=== PATIENT | female | born 1945 | race Caucasian/White ===

== ENCOUNTER 2016-06-17 14:11 | Observation (INO) | payer OTHER ==
[~2016-06-17] VITALS: Ht 152.4 cm; Wt 45.0 kg
[~2016-06-17 14:11] MED LIST: ACET-749 PO; ASPI-232 PO; ATV/1 PO; NRV/5 PO; VALA1TAB PO
[2016-06-17] MEDS ORDERED: OPTIRAY 320 IV PRN (15:15)
[2016-06-17] MEDS ORDERED: ONDANSETRON INJ 2 MG/ML 2 ML VIAL IV STA (15:30)
[2016-06-17] MEDS ORDERED: SODIUM CHLORIDE 0.9% 500ML 500 ML IV STA (15:30)
[2016-06-17] MEDS ORDERED: HYDROmorphone INJ 0.5 MG/0.5 ML SYR IV STA ×4 (15:30→20:31)
[2016-06-17 15:54] LABS: BASO % 0.2 %; BASO ABS # 0.02 K/uL (0-0.2); COMPLETE YES; EOS % 0.3 %; HEMATOCRIT 40.2 % (37-47); IG% 0.2 %; LYMPH % 14.3 %; LYMPH ABS # 1.37 K/uL (1.2-3.4); MEAN CELL VOLUME 94.8 fL (80-100); MEAN CORPUSCULAR HEMOGLOBIN 33.7 pg (25-34); MEAN CORPUSCULAR HGB CONC 35.6 g/dl (32-36); MONO % 5.9 %; NEUT % 79.1 %; PLATELET COUNT 387 K/uL (130-400); RED BLOOD COUNT 4.24 M/uL (4.2-5.4); WHITE BLOOD COUNT 9.57 K/uL (4.8-10.8)
[2016-06-17 16:05] LABS: INR 0.9 (0.9-1.1); PARTIAL THROMBOPLASTIN RATIO 1.1
[2016-06-17 16:19] LABS: URINE APPEARANCE CLEAR (CLEAR); URINE BILIRUBIN NEG (NEG); URINE COLOR YELLOW; URINE EPITHELIAL CELL AUTO >30 /lpf (0-5); URINE NITRITE NEG (NEG); URINE SPECIFIC GRAVITY 1.015 (1.000-1.030); UROBILINOGEN NEG (NEG)
[2016-06-17 16:20] LABS: MANUAL MICROSCOPIC REQUIRED? NO; REVIEW REQ? NO
[2016-06-17 16:20] LABS: BLOOD UREA NITROGEN 15 mg/dl (7-18); CALCIUM 9.3 mg/dl (8.5-10.1); CARBON DIOXIDE 24 mmol/L (21-32); CHLORIDE 104 mmol/L (98-107); CREATININE 0.82 mg/dl (0.60-1.20); GLUCOSE 101 mg/dl (70-99); POTASSIUM 3.7 mmol/L (3.5-5.1); SODIUM 137 mmol/L (136-145)
[2016-06-17 16:48] LABS: LYME DISEASE AB IGG NEG (NEG); LYME DISEASE AB IGM NEG (NEG)
--- NOTE | 2016-06-17 17:31 | DIAGNOSTIC IMAGING REPORT ---
CT ANGIOGRAPHY HEAD COMBO CT DOSE: 924.40 mGycm CLINICAL HISTORY: Severe headache. TECHNIQUE: Axial images of the head were obtained before and after intravenous administration of116 cc Optiray 320 IV. Sagittal and coronal reconstructed reviewed as well as maximal intensity projections on an independent 3-D workstation. COMPARISON STUDY: Head CT March 21, 2015. FINDINGS: No acute intracranial hemorrhage, midline shift or mass effect is present. Ventricular system is normal. Basilar cisterns are patent. There are no extra-axial collections. Granados-white differentiation is maintained. White matter hypodensity suggests small vessel disease. There are no findings to suggest acute dural sinus thrombosis or acute territorial infarct. The bilateral M1, M2, A1 and A2 segments are patent. There is no abrupt vessel cut off. There is moderate plaque within the bilateral cavernous carotids. No intracranial aneurysm is identified. The posterior circulation is intact. IMPRESSION: 1. No acute intracranial findings. 2. No intracranial aneurysm or abrupt vessel cut off. Electronically signed by: Ty Andrews M.D. 06/17/2016 5:29 PM Dictated Date/Time: 06/17/2016 5:24 PM
[2016-06-17] MEDS ORDERED: LORAZEPAM 1 MG TAB SL STA (18:18)
[2016-06-17] MEDS ORDERED: FENTANYL CITRATE INJ 50 MCG/1 ML 2 ML VIAL IV STA (19:13)
[2016-06-17] MEDS ORDERED: PROCHLORPERAZINE 5 MG/ML 2 ML VIAL IV STA (20:31)
[2016-06-17 21:57] LABS: ALKALINE PHOSPHATASE 75 U/L (45-117); ALT/SGPT 89 U/L (12-78); AST/SGOT 30 U/L (15-37); MAGNESIUM 2.5 mg/dl (1.8-2.4)
[2016-06-17] MEDS ORDERED: OXYCODONE/ACETAMINOPHEN 5-325 TAB PO PRN (22:30)
[2016-06-17] MEDS ORDERED: LORAZEPAM 2 MG/ML 1 ML VIAL IV PRN ×2 (22:30→22:45)
[2016-06-17] MEDS ORDERED: MoRPHine SULFATE 4 MG/ML 1 ML CARP\\VIAL IV PRN ×2 (22:30→23:00)
[2016-06-17] MEDS ORDERED: IV FLUIDS COMPLETED PRN (22:30)
[2016-06-17] MEDS ORDERED: NITROGLYCERIN 0.4 MG SL PER TAB CHARGE SL PRN (22:45)
[2016-06-17] MEDS ORDERED: METOCLOPRAMIDE HCL INJ 5 MG/ML 2 ML VIAL IV PRN (22:45)
[2016-06-17] MEDS ORDERED: ACETAMINOPHEN 325 MG TAB PO PRN (22:45)
[2016-06-17] MEDS ORDERED: LORAZEPAM 1 MG TAB PO PRN (22:45)
[2016-06-17] MEDS ORDERED: ONDANSETRON INJ 2 MG/ML 2 ML VIAL IV PRN (22:45)
[2016-06-17] MEDS ORDERED: PROMETHAZINE HCL INJ 12.5 MG in SODIUM CHLORIDE 0.9% 50ML 50 ML IV PRN (22:45)
--- NOTE | 2016-06-17 23:44 | EMERGENCY ROOM VISIT NOTE ---
History Report prepared by Estela: Daniel Miramontes Under the Supervision of: Dr. Guanakito Kennedy M.D. First contact with patient: 15:10 Chief Complaint: HEADACHE Stated Complaint: SEVERE HEADACHES History of Present Illness The patient is a 70 year old female who presents to the Emergency Room with complaints of a worsening blistering headache in the occipital region starting last night around 1530 yesterday. The patient's states that last night she got a headache, and she took her lorazepam before eating her evening meal, and the lorazepam did not help. The states that afterwards between 1900- 0500 this morning she took 8 Tylenol 3 with codeine. The patient states that she usually has headaches around 1500 every day for years, so she takes lorazepam, and after this usually helps, and she can sleep. The patient states that she woke up this morning, and she had some dario dry and two aspirin and her blood pressure medications. She states that around 0930 the headache got much worse. The patient additionally states that she has pulled a muscle in her right side, she has been having some palpitations, and she has been having some nausea. Additionally, she states that her jaw shakes and it feels like her throat is closing up. Pt denies LOC, fevers, chills, diaphoresis, visual changes , neck pain, breathing difficulties, vomiting, abdominal pain, back pain, melena , hematochezia, urinary symptoms, numbness, weakness, lymphadenopathy, rash, or other complaints. Source of History: patient, spouse/significant other Onset: 1530 last night Position: head Symptom Intensity: blistering Quality: ache Timing: worsening Note: Associated symptoms: Right sided pain, jaw shaking, palpitations Review of Systems See HPI for pertinent positives and negatives. A total of ten systems were reviewed and were otherwise negative. Past Medical & Surgical Medical Problems: (1) HTN (hypertension) Family History FH: [place] (myocardial infarction) FATHER FH: throat cancer MOTHER Social History Smoking Status: Never Smoker Alcohol Use: none Marital Status: Housing Status: lives with family Current/Historical Medications Scheduled Amlodipine Besylate (Amlodipine Besylate), 10 MG PO DAILY Aspirin (Aspir-81), 81 MG PO DAILY Scheduled PRN Acetaminophen/Codeine (Tylenol W/Codeine #3), 1-2 TAB PO Q4H PRN for Pain Lorazepam (Ativan), 1-2 MG PO HS PRN for Anxiety and/or Sedation Allergies Coded Allergies: Brompheniramine (Verified Allergy, Unknown, UNKNOWN, 06/17/16) Buspirone (Verified Allergy, Unknown, UNKNOWN, 06/17/16) Chlorzoxazone (Verified Allergy, Unknown, U NKNOWN, 06/17/16) Diphenhydramine (Verified Allergy, Unknown, UNKNOWN, 06/17/16) Famotidine (Verified Allergy, Unknown, UNKNOWN, 06/17/16) Gluten (Unverified Allergy, Unknown, unknown, 06/17/16) Ibuprofen (Unverified Allergy, Unknown, hives, 06/17/16) Meperidine (Verified Allergy, Unknown, ., 06/17/16) Penicillins (Unverified Allergy, Unknown, 06/17/16) Phenylpropanolamine (Verified Allergy, Unknown, UNKNOWN, 06/17/16) Sulfa Drugs (Unverified Allergy, Unknown, 06/17/16) Thiopental (Verified Allergy, Unknown, ., 06/17/16) Metoprolol (Verified Adverse Reaction, Intermediate, SUDDEN SEVERE MOOD CHANGES, 06/17/16) Prednisone (Verified Adverse Reaction, Mild, o, 06/17/16) increased iop Uncoded Allergies: IMPERIUM 3 (Allergy, Unknown, UNKNOWN, 04/29/13) Physical Exam Vital Signs Date Time Temp Pulse Resp B/P Pulse Ox O2 Delivery O2 Flow Rate FiO2 06/17/16 21:47 78 16 159/88 94 Room Air 06/17/16 20:25 73 06/17/16 20:13 69 18 150/84 96 06/17/16 18:47 74 16 162/79 94 Room Air 06/17/16 17:21 81 19 144/81 96 Room Air 06/17/16 16:08 81 06/17/16 15:29 85 16 175/94 96 Room Air 06/17/16 14:27 37.2 92 19 180/90 95 Room Air Physical Exam GENERAL: Awake, alert, uncomfortable appearing, no distress HENT: Tenderness across the occiput bilaterally. Normocephalic, atraumatic. TM' s normal. Oropharynx unremarkable. EYES: PERRL. EOMI. Normal conjunctiva. Sclera non-icteric. NECK: Supple. No nuchal rigidity. FROM. No JVD or bruit. RESPIRATORY: CTA CARDIAC: RRR. No murmur. ABDOMEN: Soft, non distended. No tenderness to palpation. No rebound or guarding. No masses. RECTAL: Deferred. MUSCULOSKELETAL: Unremarkable. No edema. No discoloration. Gross motor strength symmetric. NEURO: Cranial nerves 2-12 grossly intact. Normal sensorium. No sensory or motor deficits noted. Speech normal. No pronator drift. SKIN: No rash or jaundice noted. LYMPH: No adenopathy. Medical Decision & Procedures ER Provider Diagnostic Interpretation: Radiology results as stated below per my review and radiologist interpretation CT ANGIOGRAPHY HEAD COMBO CT DOSE: 924.40 mGycm CLINICAL HISTORY: Severe headache. TECHNIQUE: Axial images of the head were obtained before and after intravenous administration of116 cc Optiray 320 IV. Sagittal and coronal reconstructed reviewed as well as maximal intensity projections on an independent 3-D workstation. COMPARISON STUDY: Head CT March 21, 2015. FINDINGS: No acute intracranial hemorrhage, midline shift or mass effect is present. Ventricular system is normal. Basilar cisterns are patent. There are no extra-axial collections. Granados-white differentiation is maintained. White matter hypodensity suggests small vessel disease. There are no findings to suggest acute dural sinus thrombosis or acute territorial infarct. The bilateral M1, M2, A1 and A2 segments are patent. There is no abrupt vessel cut off. There is moderate plaque within the bilateral cavernous carotids. No intracranial aneurysm is identified. The posterior circulation is intact. IMPRESSION: 1. No acute intracranial findings. 2. No intracranial aneurysm or abrupt vessel cut off. Electronically signed by: Ty Andrews M.D. 06/17/2016 5:29 PM Dictated Date/Time: 06/17/2016 5:24 PM Laboratory Results 06/17/16 15:25 Red Blood Count 4.24, Mean Corpuscular Volume 94.8, Mean Corpuscular Hemoglobin 33.7, Mean Corpuscular Hemoglobin Concent 35.6, Mean Platelet Volume 9.0, Neutrophils (%) (Auto) 79.1, Lymphocytes (%) (Auto) 14.3, Monocytes (%) (Auto) 5.9, Eosinophils (%) (Auto) 0.3, Basophils (%) (Auto) 0.2, Neutrophils # (Auto) 7.57, Lymphocytes # (Auto) 1.37, Monocytes # (Auto) 0.56, Eosinophils # (Auto) 0.03, Basophils # (Auto) 0.02 06/17/16 15:25 Test 06/17/16 15:25 06/17/16 16:01 White Blood Count 9.57 K/uL (4.8-10.8) Red Blood Count 4.24 M/uL (4.2-5.4) Hemoglobin 14.3 g/dL (12.0-16.0) Hematocrit 40.2 % (37-47) Mean Corpuscular Volume 94.8 fL (80-100) Mean Corpuscular Hemoglobin 33.7 pg (25-34) Mean Corpuscular Hemoglobin Concent 35.6 g/dl (32-36) Platelet Count 387 K/uL (130-400) Mean Platelet Volume 9.0 fL (7.4-10.4) Neutrophils (%) (Auto) 79.1 % Lymphocytes (%) (Auto) 14.3 % Monocytes (%) (Auto) 5.9 % Eosinophils (%) (Auto) 0.3 % Basophils (%) (Auto) 0.2 % Neutrophils # (Auto) 7.57 K/uL (1.4-6.5) Lymphocytes # (Auto) 1.37 K/uL (1.2-3.4) Monocytes # (Auto) 0.56 K/uL (0.11-0.59) Eosinophils # (Auto) 0.03 K/uL (0-0.5) Basophils # (Auto) 0.02 K/uL (0-0.2) RDW Standard Deviation 40.9 fL (36.4-46.3) RDW Coefficient of Variation 11.9 % (11.5-14.5) Immature Granulocyte % (Auto) 0.2 % Immature Granulocyte # (Auto) 0.02 K/uL (0.00-0.02) Erythrocyte Sedimentation Rate 7 mm/hr (0-21) Prothrombin Time 10.0 SECONDS (9.0-12.0) Prothromb Time International Ratio 0.9 (0.9-1.1) Activated Partial Thromboplast Time 27.8 SECONDS (21.0-31.0) Partial Thromboplastin Ratio 1.1 Anion Gap 9.0 mmol/L (3-11) Est Creatinine Clear Calc Drug Dose 43.6 ml/min Estimated GFR () 84.0 Estimated GFR (Non- 72.5 BUN/Creatinine Ratio 18.0 (10-20) Calcium Level 9.3 mg/dl (8.5-10.1) Magnesium Level 2.5 mg/dl (1.8-2.4) Total Bilirubin 0.4 mg/dl (0.2-1) Direct Bilirubin < 0.1 mg/dl (0-0.2) Aspartate Amino Transf (AST/SGOT) 30 U/L (15-37) Alanine Aminotransferase (ALT/SGPT) 89 U/L (12-78) Alkaline Phosphatase 75 U/L (45-117) Troponin I < 0.015 ng/ml (0-0.045) Total Protein 8.3 gm/dl (6.4-8.2) Albumin 4.5 gm/dl (3.4-5.0) Lipase 178 U/L (73-393) Lyme Disease IgG Antibody NEG (NEG) Lyme Disease IgM Antibody NEG (NEG) Urine Color YELLOW Urine Appearance CLEAR (CLEAR) Urine pH 5.0 (4.5-7.5) Urine Specific [place] 1.015 (1.000-1.030) Urine Protein NEG (NEG) Urine Glucose (UA) NEG (NEG) Urine Ketones NEG (NEG) Urine Occult Blood TRACE (NEG) Urine Nitrite NEG (NEG) Urine Bilirubin NEG (NEG) Urine Urobilinogen NEG (NEG) Urine Leukocyte Esterase NEG (NEG) Urine WBC (Auto) 1-5 /hpf (0-5) Urine RBC (Auto) 0-4 /hpf (0-4) Urine Hyaline Casts (Auto) 1-5 /lpf (0-5) Urine Epithelial Cells (Auto) >30 /lpf (0-5) Urine Bacteria (Auto) NEG (NEG) Laboratory results reviewed by me Medications Administered Medications (Trade) Dose Ordered Sig/Bella Route Start Time Stop Time Status Last Admin Dose Admin Hydromorphone HCl (Dilaudid Inj) 0.5 mg NOW STAT IV 06/17/16 15:30 06/17/16 15:33 DC 06/17/16 15:56 0.5 MG Ondansetron HCl 4 mg 4 mg NOW STAT IV 06/17/16 15:30 3/15/17 15:33 DC 06/17/16 15:56 4 MG Sodium Chloride (Nss 500ml) 500 ml @ 999 mls/hr Q31M STAT IV 06/17/16 15:30 06/17/16 16:00 DC 06/17/16 15:56 999 MLS/HR Hydromorphone HCl (Dilaudid Inj) 0.5 mg NOW STAT IV 06/17/16 17:00 06/17/16 17:01 DC 06/17/16 17:21 0.5 MG Lorazepam (Ativan Tab) 1 mg NOW STAT SL 06/17/16 18:18 06/17/16 18:19 DC 06/17/16 18:36 1 MG Fentanyl Citrate (Fentanyl Inj) 50 mcg NOW STAT IV 06/17/16 19:13 06/17/16 19:14 DC 06/17/16 19:20 50 MCG Hydromorphone HCl (Dilaudid Inj) 0.5 mg NOW STAT IV 06/17/16 20:31 06/17/16 20:33 DC 06/17/16 21:11 0.5 MG Prochlorperazine Edisylate (Compazine Inj) 5 mg NOW STAT IV 06/17/16 20:31 06/17/16 20:33 DC 06/17/16 21:11 5 MG ECG Indication: other (headache) Rate (beats per minute): 86 Rhythm: normal sinus Findings: no acute ischemic change, no ectopy, other (Poor R-wave progression anteriorly) ED Course 1528: The patient was evaluated in room A9. A complete history and physical exam was performed. 1530: Sodium Chloride 500 ml @ 999 mls/hr IV, Zofran Inj 4mg IV, Dilaudid Inj 0.5mg IV 1700: Dilaudid Inj 0.5mg IV 1818: Ativan Tab 1mg SL 1845: I reevaluated and updated the patient, and she was feeling okay. 1912: Fentanyl Inj 50mcg IV 2030: Compazine Inj 5mg IV, Dilaudid Inj 0.5mg IV 2121: I reevaluated the patient, and she was not feeling any better. 2127: I discussed the patient's case with Dr. Conway. He is going to evaluate the patient for further treatment Medical Decision Triage Nursing notes reviewed. Prior records reviewed. Patient has had similar visits in the past. The patient's presentation and history were concerning for headache. Etiologies such as migraine, tumor, headache, sinus thrombosis, temporal arteritis, sinusitis, CVA, ICH, SAH, infection, as well as others were entertained. The patient was evaluated. She was neurologically intact. She was uncomfortable. She had a tender occiput. There was no trauma. The patient underwent CT angiography of her head. There was no aneurysm, cut off, bleeding , or mass noted. The patient was given Dilaudid and Zofran. She felt somewhat better with this but then had recurrent pain. She was given a second dose of Dilaudid. Unfortunately the patient has several allergies that would preclude normal migraine treatment. She was given a dose of fentanyl. The patient had some improvement. The patient was monitored. She was hungry and was given dinner. She also is requesting her afternoon lorazepam dose. This was given. The patient then had increased symptoms with regard to the occipital pain. She was given Compazine and Dilaudid. The patient was still having symptoms. She was in the Emergency Room for many hours. She has an intractable headache. There is no evidence of bleeding or abnormality on CT imaging. Her CBC, ESR, and chemistry panel were unremarkable. Given the issue I discussed further evaluation and management in the hospital. The patient and were in agreement. Consultation was made with internal medicine. Patient was evaluated in the Emergency Room for further treatment. The chart was completed utilizing [employer] Speech voice recognition software. Grammatical errors, random word insertions, pronoun errors, and incomplete sentences are an occasional consequence of this system due to software limitations, ambient noise, and hardware issues. Any formal questions or concerns about the content, text, or information contained within the body of this dictation should be directly addressed to the physician for clarification. Consults Time Called: 2124 Consulting Physician: Dr. Conway Returned Call: 2127 I discussed the patient's case with Dr. Conway. He is going to evaluate the patient for further treatment Impression Primary Impression: Headache Scribe Attestation The scribe's documentation has been prepared under my direction and personally reviewed by me in its entirety. I confirm that the note above accurately reflects all work, treatment, procedures, and medical decision making performed by me. Departure Information Dispostion Being Evaluated By Hospitalist Referrals Guanakito Hough III, M.D. (PCP)
[2016-06-17] MEDS ORDERED: NSS + 20MEQ KCL 1000ML 1,000 ML IV SCH (23:59)
[2016-06-18] VITALS (8 sets, daily range): BP systolic 113–149; BP diastolic 67–85; PULSE 65–98; TEMP 36.3–37; O2SAT 90–99; Ht 152.4 cm; Wt 45.0 kg
[2016-06-18] MEDS ORDERED: LORAZEPAM INJ 0.5 MG in SYRINGE 0.75 ML IV PRN (00:15)
[2016-06-18] MEDS: ACETAMINOPHEN/CODEINE 300/30MG TAB PO PRN ×4 (00:31→23:23)
[2016-06-18] MEDS ORDERED: HYDROCODONE/ACETAMOPHEN 5/325MG TAB PO PRN (05:45)
--- NOTE | 2016-06-18 06:40 | DIAGNOSTIC IMAGING REPORT ---
CHEST ONE VIEW PORTABLE CLINICAL HISTORY: Chest pain and shortness of breath. COMPARISON STUDY: Chest radiograph March 21, 2015. FINDINGS: Lung volumes are normal. There is no pneumothorax or pleural effusion. Cardiac size is normal. Mediastinal contours are normal. There is no evidence of pulmonary edema. There may be calcific tendinitis of the right rotator cuff. IMPRESSION: No acute cardiopulmonary findings. Electronically signed by: Ty Andrews M.D. 06/18/2016 6:38 AM Dictated Date/Time: 06/18/2016 6:37 AM
[2016-06-18 06:48] LABS: BASO % 0.1 %; BASO ABS # 0.01 K/uL (0-0.2); COMPLETE YES; HEMATOCRIT 34.1 % (37-47); IG% 0.1 %; LYMPH % 16.2 %; MEAN CORPUSCULAR HEMOGLOBIN 33.4 pg (25-34); MEAN CORPUSCULAR HGB CONC 35.2 g/dl (32-36); MONO % 5.8 %; NEUT % 77.8 %; PLATELET COUNT 310 K/uL (130-400); RED BLOOD COUNT 3.59 M/uL (4.2-5.4); WHITE BLOOD COUNT 8.66 K/uL (4.8-10.8)
[2016-06-18] MEDS: AMLODIPINE BESYLATE 5 MG TAB PO SCH (07:50)
[2016-06-18] MEDS: ASPIRIN 81 MG ECTAB PO SCH (07:50)
[2016-06-18] MEDS: ENOXAPARIN 30 MG/0.3 ML SYR SC SCH (07:51)
--- NOTE | 2016-06-18 08:05 | Progress Note ---
Internal Med Progress Note Date of Service: Jun 18, 2016. Provider Documentation: SUBJECTIVE: Patient is seen and examined at bedside. Patient reports occipital headache is better. Denies blurry vision, dizziness. Also states chest discomfort resolved. Has minimal epigastric pain. OBJECTIVE: Vital Signs-as noted below Physical Exam: Vitals signs as noted above General Appearance:Thin, no apparent distress Head: normocephalic, Atraumatic Eyes: normal inspection, EOMI, PERRLA Neck: supple, Trachea midline Respiratory/Chest: Normal breath sounds, CTA, No accessory muscle use Cardiovascular: S1, S2, No murmur Abdomen/GI:Soft, Mild epigastric tender, Bowel sounds present Extremities/Musculoskelatal:normal inspection, no edema Neurologic/Psych:AAOX3, grossly no focal neurological deficits Skin: normal color, warm Lab data as noted below. ASSESSMENT & PLAN: Recurrent Intractable Headache: Headache present for many years and has been progressively worsening DD:Migraine, Tension Headache, R/O structural causes, Anxiety could be contributing CTA head: No acute process MRI head pending Neurology consulted: Await for input Pain control, Unfortunately steroids precluded by past adverse reaction ESR:wnl; Lyme tires: Negative Hypertension: BP improving Continue amlodipine Atypical chest pain: likely secondary to anxiety Troponin X2 : Negative EKG: no signs of Ischemia CXR:No acute cardiopulmonary findings. Check ECHO Abdominal discomfort: Unclear etiology CT ABD:pending Low BMI:19.4 Nutrition consulted Former tobacco abuse: DVT px: Lovenox SQ CODE STATUS: Full code Vital Signs: Date Time Temp Pulse Resp B/P Pulse Ox O2 Delivery O2 Flow Rate FiO2 06/18/16 08:00 Room Air 06/18/16 07:51 37.0 70 18 149/82 96 Room Air 06/18/16 04:00 94 Room Air 06/18/16 03:58 36.8 77 20 127/77 Room Air 06/18/16 00:00 36.8 95 20 142/70 94 Room Air 06/17/16 21:47 78 16 159/88 94 Room Air 06/17/16 20:25 73 06/17/16 20:13 69 18 150/84 96 06/17/16 18:47 74 16 162/79 94 Room Air 06/17/16 17:21 81 19 144/81 96 Room Air 06/17/16 16:08 81 06/17/16 15:29 85 16 175/94 96 Room Air 06/17/16 14:27 37.2 92 19 180/90 95 Room Air Lab Results: Results Past 24 Hours Test 06/17/16 15:25 06/17/16 16:01 06/17/16 23:20 06/18/16 06:30 Range/Units White Blood Count 9.57 8.66 4.8-10.8 K/uL Red Blood Count 4.24 3.59 4.2-5.4 M/uL Hemoglobin 14.3 12.0 12.0-16.0 g/dL Hematocrit 40.2 34.1 37-47 % Mean Corpuscular Volume 94.8 95.0 80-100 fL Mean Corpuscular Hemoglobin 33.7 33.4 25-34 pg Mean Corpuscular Hemoglobin Concent 35.6 35.2 32-36 g/dl Platelet Count 387 310 130-400 K/uL Mean Platelet Volume 9.0 9.0 7.4-10.4 fL Neutrophils (%) (Auto) 79.1 77.8 % Lymphocytes (%) (Auto) 14.3 16.2 % Monocytes (%) (Auto) 5.9 5.8 % Eosinophils (%) (Auto) 0.3 0.0 % Basophils (%) (Auto) 0.2 0.1 % Neutrophils # (Auto) 7.57 6.74 1.4-6.5 K/uL Lymphocytes # (Auto) 1.37 1.40 1.2-3.4 K/uL Monocytes # (Auto) 0.56 0.50 0.11-0.59 K/uL Eosinophils # (Auto) 0.03 0.00 0-0.5 K/uL Basophils # (Auto) 0.02 0.01 0-0.2 K/uL RDW Standard Deviation 40.9 41.3 36.4-46.3 fL RDW Coefficient of Variation 11.9 12.0 11.5-14.5 % Immature Granulocyte % (Auto) 0.2 0.1 % Immature Granulocyte # (Auto) 0.02 0.01 0.00-0.02 K/uL Erythrocyte Sedimentation Rate 7 0-21 mm/hr Prothrombin Time 10.0 9.0-12.0 SECONDS Prothromb Time International Ratio 0.9 0.9-1.1 Activated Partial Thromboplast Time 27.8 21.0-31.0 SECONDS Partial Thromboplastin Ratio 1.1 Sodium Level 137 136-145 mmol/L Potassium Level 3.7 3.5-5.1 mmol/L Chloride Level 104 98-107 mmol/L Carbon Dioxide Level 24 21-32 mmol/L Anion Gap 9.0 3-11 mmol/L Blood Urea Nitrogen 15 7-18 mg/dl Creatinine 0.82 0.60-1.20 mg/dl Est Creatinine Clear Calc Drug Dose 43.6 ml/min Estimated GFR () 84.0 Estimated GFR (Non- 72.5 BUN/Creatinine Ratio 18.0 10-20 Random Glucose 101 70-99 mg/dl Calcium Level 9.3 8.5-10.1 mg/dl Magnesium Level 2.5 1.8-2.4 mg/dl Total Bilirubin 0.4 0.2-1 mg/dl Direct Bilirubin < 0.1 0-0.2 mg/dl Aspartate Amino Transf (AST/SGOT) 30 15-37 U/L Alanine Aminotransferase (ALT/SGPT) 89 12-78 U/L Alkaline Phosphatase 75 45-117 U/L Troponin I < 0.015 < 0.015 0-0.045 ng/ml Total Protein 8.3 6.4-8.2 gm/dl Albumin 4.5 3.4-5.0 gm/dl Lipase 178 73-393 U/L Lyme Disease IgG Antibody NEG NEG Lyme Disease IgM Antibody NEG NEG Urine Color YELLOW Urine Appearance CLEAR CLEAR Urine pH 5.0 4.5-7.5 Urine Specific [place] 1.015 1.000-1.030 Urine Protein NEG NEG Urine Glucose (UA) NEG NEG Urine Ketones NEG NEG Urine Occult Blood TRACE NEG Urine Nitrite NEG NEG Urine Bilirubin NEG NEG Urine Urobilinogen NEG NEG Urine Leukocyte Esterase NEG NEG Urine WBC (Auto) 1-5 0-5 /hpf Urine RBC (Auto) 0-4 0-4 /hpf Urine Hyaline Casts (Auto) 1-5 0-5 /lpf Urine Epithelial Cells (Auto) >30 0-5 /lpf Urine Bacteria (Auto) NEG NEG D-Dimer 280 0-500 ug/L FEU
--- NOTE | 2016-06-18 08:14 | HISTORY & PHYSICAL EXAMINATION ---
DATE OF ADMISSION: 06/17/2016 PRIMARY CARE DOCTOR: Dr. Hough. Hx obtained from px and records. CHIEF COMPLAINT: Headache. HISTORY OF PRESENT ILLNESS: Medical history significant for hypertension, anxiety, past tobacco abuse as per records. Recent confinement last March 2013 for post headache symptoms attributed to hypertensive urgency. As per patient, in the last 20 years she has had posterior headache symptoms occurring about 3 times a week, sometimes worse with neck motion. Denies visual problems, relieved by intake of home narcotics. Of late, headache symptoms worsening. Denies weakness in the arms and legs. She was told she may have migraine. Patient also noted chest discomfort from palpitations, fast heartbeat and a little shortness of breath. worried this patient taking too much Tylenol with Codeine. Patient also complaining of central abdominal discomfort with nausea. No change in bowel movements. Sent to Emergency Room. Intractable headache in the Emergency Room. MEDICAL HISTORY: As above. SURGERIES: Hysterectomy, tonsillectomy. HOME MEDICATIONS: Include Tylenol with Codeine, amlodipine, lorazepam. ALLERGIES: MULTIPLE ALLERGIES; ADVIL, ANAFRANIL, ASPIRIN, BUSPAR, CELESTONE, CHROMAGEN, DEMEROL, DIMETAPP, DIPHENHYDRAMINE, DOCUSATE SODIUM, DURATUSS, EPINEPHRINE, ERYTHROMYCIN, FLU VIRUS VACCINE, TRIAZOLAM, IBUPROFEN, LOPERAMIDE, KLONOPIN, LIDOCAINE, MEDROXYPROGESTERONE, NORFLEX, PARAFON, PENICILLIN, PEPCID, PREDNISONE, RISPERDAL, SULFA, TRAZODONE, PERCOCET, ULTRAM, VALIUM, WHEAT BRAN . PREDNISONE ALLERGY (INCREASE IO PRESSURE PER PATIENT). FAMILY HISTORY: Hypertension. PERSONAL AND SOCIAL HISTORY: Past smoker. Retired social worker health services. REVIEW OF SYSTEMS: As per HPI, all other ROS negative. PHYSICAL EXAMINATION: VITAL SIGNS: Blood pressure was noted to be 180/90 and later 160/70, pulse rate 74, RR 16, temperature 37, sats 95 on room. GENERAL: Noted to be anxious. No respiratory distress. hyposthenic SKIN: Normal color. HEENT: [place] palpebral conjunctivae. Dry mucosa. NECK: posterior tenderness. Full range of motion, although a bit slow. CHEST: Clear to auscultation. HEART: Regular rate and rhythm. ABDOMEN: Some distention, nontender. EXTREMITIES: No edema. no tenderness NEUROLOGIC: No gross focality. LABS: Hemoglobin 14.8, hematocrit 40, white cells 9.5, platelets 387. Sodium 140, chloride 104, CO2 of 24, BUN 50, creatinine 0.8, glucose 101, ALT 89. Lipase 178. Troponin normal. D-dimer normal. CTA head, no aneurysm. Chest x-ray, mild hyperinflation, borderline cardiac enlargement. EKG; normal sinus rhythm, negative ischemia. ASSESSMENT: 1. Recurrent headache symptoms probable migraine with cervical component, rule out structural pathology. Anxiety contributory to headache symptoms. 2. Hypertension, slightly elevated. 3. Atypical chest pain likely secondary to anxiety. 5. Abdominal discomfort, possibly from anxiety, rule out structural pathology. 6. Low BMI/malnutrition 7. Past tobacco abuse. PLAN: Observation PCU MRI of the brain and neck. (px requesting for open MRI study) analgesia (Unfortunately, steroid trial precluded by past adverse reaction) Limited options given multiple drug allergies/ADRs. judicious narcotic use. anxiolytic prn Further eval/ management of headache as per Neurology. 2D echo for chest pain CT abd pelvis RE abd pain Nutrition consult. DVT prophylaxis, Lovenox subQ. Full code. , MTDD
[2016-06-18] MEDS ORDERED: NSS + 20MEQ KCL 1000ML 1,000 ML IV SCH (09:30)
--- NOTE | 2016-06-18 13:00 | ECHOCARDIOGRAM REPORT ---
*NOTICE TO RECEIVING [employer] This information is strictly Confidential and protected under [place] law. [place] law prohibits you from making any further disclosure of this information unless further disclosure is expressly permitted by the written consent of the person to whom it pertains or is authorized by law. A general authorization for the release of medical or other information is not sufficient for this purpose. Hospital accepts no responsibility if the information is made available to any other person, INCLUDING THE PATIENT. Interpretation Summary * Name: CATHY LORENZO Study Date: 06/18/2016 09:04 AM BP: 127/77 mmHg * Patient Location: [facility] HR: 77 * : 1945 (M/d/yyyy) Gender: Female Height: 59 in * Age: 70 yrs Ethnicity: CA Weight: 96 lb * Ordering Physician: Heber Conway * Referring Physician: Julia Jose PA-C * Performed By: Abby Ch RDCS * * Reason For Study: Chest pain * BSA: 1.3 m2 * -- Conclusions -- * The left ventricle is hyperdynamic. * Ejection Fraction = >70 %. * The left ventricular wall motion is normal. * The right ventricular systolic function is normal. * The left atrial size is normal. * Right atrial size is normal. * There is mild to moderate tricuspid regurgitation. Procedure Details * A complete two-dimensional transthoracic echocardiogram was performed (2D, M-mode, Doppler and color flow Doppler). Left Ventricle * The left ventricle is normal in size. * There is normal left ventricular wall thickness. * Ejection Fraction = >70 %. * The left ventricle is hyperdynamic. * The left ventricular wall motion is normal. Right Ventricle * The right ventricle is normal size. * The right ventricular systolic function is normal. Atria * The left atrial size is normal. * Right atrial size is normal. * The interatrial septum is intact with no evidence for an atrial septal defect. Mitral Valve * The mitral valve is grossly normal. * There is trace mitral regurgitation. Tricuspid Valve * The tricuspid valve is not well visualized, but is grossly normal. * There is mild to moderate tricuspid regurgitation. Aortic Valve * The aortic valve is normal in structure and function. Pulmonic Valve * The pulmonic valve is not well visualized. * There is no significant pulmonary regurgitation. Great Vessels * The aortic root and proximal ascending aorta are normal sized. Pericardium/Pleural * There is no pericardial effusion. MMode 2D Measurements and Calculations IVSd 0.95 cm LVIDd 3.4 cm LVIDs 2.1 cm LVPWd 1.3 cm IVS/LVPW 0.71 FS 38.3 % EDV(Teich) 47.8 ml ESV(Teich) 14.5 ml EF(Teich) 69.7 % EDV(cubed) 39.7 ml ESV(cubed) 9.3 ml EF(cubed) 76.5 % LV mass(C)d 122.5 grams LV mass(C)dI 90.7 grams/m\S\2 CO(Teich) 2.5 l/min CI(Teich) 1.9 l/min/m\S\2 SV(Teich) 33.3 ml SI(Teich) 24.7 ml/m\S\2 CO(cubed) 2.3 l/min CI(cubed) 1.7 l/min/m\S\2 SV(cubed) 30.4 ml SI(cubed) 22.5 ml/m\S\2 Ao root diam 2.7 cm Ao root area 5.7 cm\S\2 ACS 1.7 cm LA dimension 2.7 cm asc Aorta Diam 2.8 cm LA/Ao 1.0 LVOT diam 2.0 cm LVOT area 3.0 cm\S\2 LVAd ap4 18.5 cm\S\2 LVLd ap4 6.5 cm EDV(MOD-sp4) 43.0 ml LVAs ap4 7.8 cm\S\2 LVLs ap4 4.6 cm ESV(MOD-sp4) 12.0 ml EF(MOD-sp4) 72.1 % LVAd ap2 16.9 cm\S\2 LVLd ap2 6.3 cm EDV(MOD-sp2) 38.0 ml LVAs ap2 6.6 cm\S\2 LVLs ap2 4.5 cm ESV(MOD-sp2) 9.0 ml EF(MOD-sp2) 76.3 % CO(MOD-sp4) 2.4 l/min CI(MOD-sp4) 1.7 l/min/m\S\2 SV(MOD-sp4) 31.0 ml SI(MOD-sp4) 23.0 ml/m\S\2 CO(MOD-sp2) 2.2 l/min CI(MOD-sp2) 1.6 l/min/m\S\2 SV(MOD-sp2) 29.0 ml SI(MOD-sp2) 21.5 ml/m\S\2 Doppler Measurements and Calculations MV E max nestor 100.2 cm/sec MV A max nestor 110.6 cm/sec MV E/A 0.91 MV dec time 0.14 sec Ao V2 max 173.7 cm/sec Ao max PG 12.1 mmHg Ao max PG (full) 4.6 mmHg JASMIN(V,A) 2.4 cm\S\2 JASMIN(V,D) 2.4 cm\S\2 LV V1 max PG 7.5 mmHg LV V1 max 136.7 cm/sec MR max nestor 566.8 cm/sec MR max PG 128.5 mmHg MR mean nestor 458.9 cm/sec MR mean PG 91.1 mmHg MR VTI 163.2 cm PA V2 max 118.1 cm/sec PA max PG 5.6 mmHg PA acc slope 754.0 cm/sec\S\2 PA acc time 0.13 sec PI max nestor 190.0 cm/sec PI max PG 14.4 mmHg PI dec slope 340.8 cm/sec\S\2 PI P1/2t 163.3 msec TR max nestor 230.2 cm/sec PA pr(Accel) 20.4 mmHg
--- NOTE | 2016-06-18 13:11 | DIAGNOSTIC IMAGING REPORT ---
MRI OF THE BRAIN WITHOUT AND WITH IV CONTRAST CLINICAL HISTORY: oneill mental status change COMPARISON STUDY: No previous studies for comparison. TECHNIQUE: Utilizing a 1.5 Michelle magnet and dedicated coil, multiplanar, multiecho imaging of the brain was performed pre and postcontrast administration. IV administration of 4.5 mL of Gadavist contrast was uneventful. FINDINGS: Diffusion-weighted images are negative for an acute ischemic process. Remainder the study confirms presence of mild cerebellar as well as cerebral atrophy. Several foci of increased signal are identified in the periventricular and deep white matter regions. This consistent with chronic small vessel change of aging. Sella and parasellar regions are unremarkable. Internal artery canals are symmetric. Postcontrast images are considered negative for an enhancing lesion. IMPRESSION: 1. Mild age-related changes including chronic small vessel change as well as atrophy. 2. The Study is otherwise negative with no evidence for abnormal postcontrast enhancement Electronically signed by: Jong Lopez M.D. 06/18/2016 1:10 PM Dictated Date/Time: 06/18/2016 1:07 PM
--- NOTE | 2016-06-18 13:19 | DIAGNOSTIC IMAGING REPORT ---
CERVICAL SPINE MRI WITH AND WITHOUT CONTRAST HISTORY: Neck pain. Radiculopathy. neck pain TECHNIQUE: Multiplanar multisequence MRI of the cervical spine was performed both before and after the use of intravenous contrast. COMPARISON STUDY: None. FINDINGS: Moderate degenerative disc change at the entire cervical region. Signal characteristics of the vertebral bodies are unremarkable. No evidence for abnormal postcontrast enhancement. C2-C3: No significant central canal or neural foraminal narrowing. C3-C4: Mild broad-based bulging disc. Mild narrowing of the neuroforamina bilaterally C4-C5: Mild broad-based bulging disc with mild narrowing of the left and to a lesser extent right neural foramina C5-C6: Mild broad-based bulging disc in contact with but showing no significant deformity of the cervical cord C6-C7: Mild osteophytic narrowing left neuroforamina. Minimal broad-based disc bulge C7-T1: Mild broad-based bulging disc. Neuroforamina are patent bilaterally. IMPRESSION: 1. Multilevel broad-based bulging discs seen primarily at C3-C4, C4-C5, C5-C6, and C7-T1 2. Moderate narrowing of the neuroforamina bilaterally at virtually all levels due to bulging disc components as well as moderate osteophytic reaction. 3. No evidence for high-grade component of spinal stenosis, nor is there evidence for major disc herniation 4. No evidence for abnormal postcontrast enhancement Electronically signed by: Jong Lopez M.D. 06/18/2016 1:18 PM Dictated Date/Time: 06/18/2016 1:14 PM
--- NOTE | 2016-06-18 13:42 | DIAGNOSTIC IMAGING REPORT ---
ABDOMEN AND PELVIS CT WITHOUT CONTRAST CT DOSE: 211.90 mGycm HISTORY: Pain abd pain TECHNIQUE: Multiaxial CT images of the abdomen and pelvis were performed without contrast. COMPARISON STUDY: 03/22/2015 FINDINGS: Lung bases are clear. Liver spleen and pancreas are unremarkable within limitations of an unenhanced scan. No evidence for hydronephrosis or renal calcification. Gallbladder is negative for distention. Bowel pattern is nonobstructive. There is no significant retroperitoneal or pelvic adenopathy. Bladder is midline. There is a cystic lesion of the right central pelvis which has been described previously. Dimensions are unchanged from the prior study at approximately 6 x 4.5 cm. IMPRESSION: 1. No acute process of the abdomen or pelvis. 2. Nonobstructive bowel pattern. 3. Unchanged 6 x 4.5 cm cystic lesion of the right soft tissue pelvic region Electronically signed by: Jong Lopez M.D. 06/18/2016 1:41 PM Dictated Date/Time: 06/18/2016 1:36 PM
--- NOTE | 2016-06-18 16:03 | Neurology Consultation ---
Neurology Consultation Date of Consultation: Jun 18, 2016. Attending Physician: Zhou Young MD Primary Care Physician: Guanakito Hough III, M.D. Reason for Consultation: intractable headache History of Present Illness Source: patient, spouse Shawna is a 70 year old who has a PMH HTN, anxiety, past tobacco abuse. who was previously hospitalized in 2013 for an episode of headache with high blood pressure. She has had posterior headaches for about 20 years, which she states in in the back of her head and into her neck. They are not pounding, no aura, no double vision which were only happening about 3 times a month but now they have increased to 3 x per week. She states the headache is daily but she only takes the T3 when they get really bad. Last night she states she took at least 10-12 pills. At one time she did see a neurologist but she states she is allergic to the medications she was given. She also states she has muscle atrophy on the right side of her face and into her neck. Her worried this patient taking too much Tylenol with Codeine. She was brought to the ED and was given dilaudid which she states didn't help. Once she was given the T3 and repeated several times the headache subsided and she is now symptoms free. denies CP, SOB, abdominal pain, weakness, numbness tingling, N, V. Past Medical/Surgical History Medical Problems: (1) Acute headache Status: Acute (2) Headache Status: Acute (3) Nausea & vomiting Status: Acute Social History Smoking Status: Former smoker Marital Status: Housing Status: lives with family Allergies Coded Allergies: Brompheniramine (Verified Allergy, Unknown, UNKNOWN, 06/17/16) Buspirone (Verified Allergy, Unknown, UNKNOWN, 06/17/16) Chlorzoxazone (Verified Allergy, Unknown, U NKNOWN, 06/17/16) Diphenhydramine (Verified Allergy, Unknown, UNKNOWN, 06/17/16) Famotidine (Verified Allergy, Unknown, UNKNOWN, 06/17/16) Gluten (Unverified Allergy, Unknown, unknown, 06/17/16) Ibuprofen (Unverified Allergy, Unknown, hives, 06/17/16) Meperidine (Verified Allergy, Unknown, ., 06/17/16) Penicillins (Unverified Allergy, Unknown, 06/17/16) Phenylpropanolamine (Verified Allergy, Unknown, UNKNOWN, 06/17/16) Sulfa Drugs (Unverified Allergy, Unknown, 06/17/16) Thiopental (Verified Allergy, Unknown, ., 06/17/16) Metoprolol (Verified Adverse Reaction, Intermediate, SUDDEN SEVERE MOOD CHANGES, 06/17/16) Prednisone (Verified Adverse Reaction, Mild, o, 06/17/16) increased iop Acetaminophen (Verified Adverse Reaction, Unknown, 0, 06/18/16) as per epic outpx records Oxycodone (Verified Adverse Reaction, Unknown, 0, 06/18/16) as per epic outpx records Uncoded Allergies: IMPERIUM 3 (Allergy, Unknown, UNKNOWN, 04/29/13) Current Inpatient Medications Current Inpatient Medications Medications (Trade) Dose Ordered Sig/Bella Route Start Time Stop Time Status Last Admin Dose Admin Ioversol (Optiray 320) 125 ml UD PRN IV 06/17/16 15:15 06/21/16 15:14 Miscellaneous (Iv Fluids Completed) 1 ea PRN PRN N/A 06/17/16 22:30 06/17/17 22:29 Lorazepam (Ativan Inj) 0.5 mg Q4H PRN IV 06/17/16 22:30 07/17/16 22:29 Morphine Sulfate (MoRPHine SULFATE INJ) 4 mg Q4H PRN IV 06/17/16 23:00 07/01/16 22:59 Ondansetron HCl 4 mg 4 mg Q6H PRN IV 06/17/16 22:45 07/17/16 22:44 Promethazine HCl/ Sodium Chloride (Phenergan Inj/ Nss 50ml) 50.5 ml @ 204 mls/hr Q6H PRN IV 06/17/16 22:45 07/17/16 22:44 Metoclopramide HCl (Reglan Inj) 10 mg Q6H PRN IV 06/17/16 22:45 07/17/16 22:44 Enoxaparin Sodium (Lovenox Inj) 30 mg QAM SC 06/18/16 09:00 07/18/16 08:59 Acetaminophen (Tylenol Tab) 650 mg Q4H PRN PO 06/17/16 22:45 07/17/16 22:44 Nitroglycerin (Nitrostat Tab) 0.4 mg UD PRN SL 06/17/16 22:45 07/17/16 22:44 Lorazepam (Ativan Inj) 0.5 mg Q1H PRN IV 06/17/16 22:45 07/17/16 22:44 06/18/16 11:36 0.5 MG Acetaminophen/ Codeine Phosphate (Tylenol w/ Codeine #3 Tab) pain not relieved by tylenol Q4H PRN PO 06/17/16 22:45 07/17/16 22:44 06/18/16 05:01 2 TAB Amlodipine Besylate (Norvasc Tab) 10 mg DAILY PO 06/18/16 09:00 07/18/16 08:59 06/18/16 07:50 10 MG Aspirin (Ecotrin Tab) 81 mg DAILY PO 06/18/16 09:00 07/18/16 08:59 Lorazepam 1 mg 1 mg HS PRN PO 06/17/16 22:45 07/17/16 22:44 Lorazepam/Syringe (Ativan Inj/ Syringe) 1 ml @ 1 mls/min Q4H PRN IV 06/18/16 00:15 07/18/16 00:14 Acetaminophen/ Hydrocodone Bitart 1 tab 1 tab Q4H PRN PO 06/18/16 05:45 07/02/16 05:44 Potassium Chloride/Sodium Chloride (Nss + 20meq KCl 1000ml) 1,000 ml @ 60 mls/hr [id number] IV 06/18/16 09:30 07/18/16 09:29 06/18/16 11:37 60 MLS/HR Physical Exam Vital Signs (Past 24 Hrs): Date Time Temp Pulse Resp B/P Pulse Ox O2 Delivery O2 Flow Rate FiO2 06/18/16 12:00 Room Air 06/18/16 11:27 36.8 98 18 123/70 99 06/18/16 08:00 Room Air 06/18/16 07:51 37.0 70 18 149/82 96 Room Air 06/18/16 04:00 94 Room Air 06/18/16 03:58 36.8 77 20 127/77 Room Air 06/18/16 00:00 36.8 95 20 142/70 94 Room Air 06/17/16 21:47 78 16 159/88 94 Room Air 06/17/16 20:25 73 06/17/16 20:13 69 18 150/84 96 06/17/16 18:47 74 16 162/79 94 Room Air 06/17/16 17:21 81 19 144/81 96 Room Air 06/17/16 16:08 81 06/17/16 15:29 85 16 175/94 96 Room Air Physical Exam: Constitutional: thin pale, NAD Ears, Nose, Mouth and Throat: mucous membranes moist, no injection and skin normal, eyes normal Cardiovascular: normal S-1 and S-2 and regular rate and rhythm Respiratory: clear to auscultation (CTA) and no rales, rhonchi or wheeze Musculoskeletal: no peripheral edema and good distal pulses Skin: no stigmata of neurocutaneous disease noted and normal and intact Eyes: extraocular muscles intact (EOMI) and pupils equal, round and reactive to light (PERRL), miotic NEUROLOGIC EXAMINATION: Mental status: Alert and interactive Oriented to full date and location Oriented to person Speech fluent with no evidence of aphasia Cranial Nerves smile and eye brow raise symmetric, tongue midline. some atrophy with engaging the trapezius muscle Reflexes: Deep tendon reflexes were symmetrical and graded 2/5. Plantar responses were flexor. Sensory: to light touch or cool touch Coordination: finger to nose with no bi pass or tremor Gait/Stance: Posture sitting up in bed Motor: Negative for pronator drift of out stretched arms with eyes closed. Strength: biceps triceps deltoids, hand brim edge trimmer 5/5, hip flex plantar flex ext bilaterally 5/ 5 Laboratory Results Past 24 Hours: 06/18/16 06:30 Red Blood Count 3.59, Mean Corpuscular Volume 95.0, Mean Corpuscular Hemoglobin 33.4, Mean Corpuscular Hemoglobin Concent 35.2, Mean Platelet Volume 9.0, Neutrophils (%) (Auto) 77.8, Lymphocytes (%) (Auto) 16.2, Monocytes (%) (Auto) 5.8, Eosinophils (%) (Auto) 0.0, Basophils (%) (Auto) 0.1, Neutrophils # (Auto) 6.74, Lymphocytes # (Auto) 1.40, Monocytes # (Auto) 0.50, Eosinophils # (Auto) 0.00, Basophils # (Auto) 0.01 06/17/16 15:25 Test 06/17/16 15:25 06/17/16 16:01 06/17/16 23:20 06/18/16 06:30 Erythrocyte Sedimentation Rate 7 mm/hr (0-21) Prothrombin Time 10.0 SECONDS (9.0-12.0) Prothromb Time International Ratio 0.9 (0.9-1.1) Activated Partial Thromboplast Time 27.8 SECONDS (21.0-31.0) Partial Thromboplastin Ratio 1.1 Anion Gap 9.0 mmol/L (3-11) Est Creatinine Clear Calc Drug Dose 43.6 ml/min Estimated GFR () 84.0 Estimated GFR (Non- 72.5 BUN/Creatinine Ratio 18.0 (10-20) Calcium Level 9.3 mg/dl (8.5-10.1) Magnesium Level 2.5 mg/dl (1.8-2.4) Total Bilirubin 0.4 mg/dl (0.2-1) Direct Bilirubin < 0.1 mg/dl (0-0.2) Aspartate Amino Transf (AST/SGOT) 30 U/L (15-37) Alanine Aminotransferase (ALT/SGPT) 89 U/L (12-78) Alkaline Phosphatase 75 U/L (45-117) Total Protein 8.3 gm/dl (6.4-8.2) Albumin 4.5 gm/dl (3.4-5.0) Lipase 178 U/L (73-393) Lyme Disease IgG Antibody NEG (NEG) Lyme Disease IgM Antibody NEG (NEG) Urine Color YELLOW Urine Appearance CLEAR (CLEAR) Urine pH 5.0 (4.5-7.5) Urine Specific [place]ancock 1.015 (1.000-1.030) Urine Protein NEG (NEG) Urine Glucose (UA) NEG (NEG) Urine Ketones NEG (NEG) Urine Occult Blood TRACE (NEG) Urine Nitrite NEG (NEG) Urine Bilirubin NEG (NEG) Urine Urobilinogen NEG (NEG) Urine Leukocyte Esterase NEG (NEG) Urine WBC (Auto) 1-5 /hpf (0-5) Urine RBC (Auto) 0-4 /hpf (0-4) Urine Hyaline Casts (Auto) 1-5 /lpf (0-5) Urine Epithelial Cells (Auto) >30 /lpf (0-5) Urine Bacteria (Auto) NEG (NEG) D-Dimer 280 ug/L FEU (0-500) White Blood Count 8.66 K/uL (4.8-10.8) Red Blood Count 3.59 M/uL (4.2-5.4) Hemoglobin 12.0 g/dL (12.0-16.0) Hematocrit 34.1 % (37-47) Mean Corpuscular Volume 95.0 fL (80-100) Mean Corpuscular Hemoglobin 33.4 pg (25-34) Mean Corpuscular Hemoglobin Concent 35.2 g/dl (32-36) Platelet Count 310 K/uL (130-400) Mean Platelet Volume 9.0 fL (7.4-10.4) Neutrophils (%) (Auto) 77.8 % Lymphocytes (%) (Auto) 16.2 % Monocytes (%) (Auto) 5.8 % Eosinophils (%) (Auto) 0.0 % Basophils (%) (Auto) 0.1 % Neutrophils # (Auto) 6.74 K/uL (1.4-6.5) Lymphocytes # (Auto) 1.40 K/uL (1.2-3.4) Monocytes # (Auto) 0.50 K/uL (0.11-0.59) Eosinophils # (Auto) 0.00 K/uL (0-0.5) Basophils # (Auto) 0.01 K/uL (0-0.2) RDW Standard Deviation 41.3 fL (36.4-46.3) RDW Coefficient of Variation 12.0 % (11.5-14.5) Immature Granulocyte % (Auto) 0.1 % Immature Granulocyte # (Auto) 0.01 K/uL (0.00-0.02) Troponin I < 0.015 ng/ml (0-0.045) Imaging MRI brain with and without contrast- Mild age-related changes including chronic small vessel change as well as atrophy. MRI c spine with and without contrast- . Multilevel broad-based bulging discs seen primarily at C3-C4, C4-C5, C5-C6, and C7-T1 Moderate narrowing of the neuroforamina bilaterally at virtually all levels due to bulging disc components as well as moderate osteophytic reaction. No evidence for high- grade component of spinal stenosis, nor is there evidence for major disc herniation No evidence for abnormal postcontrast enhancement CT A/P- . No acute process of the abdomen or pelvis. Nonobstructive bowel pattern. Unchanged 6 x 4.5 cm cystic lesion of the right soft tissue pelvic region TTE-The left ventricle is hyperdynamic. * Ejection Fraction = >70 %. * The left ventricular wall motion is normal. * The right ventricular systolic function is normal. * The left atrial size is normal. * Right atrial size is normal. * There is mild to moderate tricuspid regurgitation. no ASD Impression 70 year old female with PMH chronic headaches with increased frequency Plan 1. MRI brain with no acute finding 2. MRI c spine with moderate degenerative changes and disc bulging with no compromise of the cord 3. T 3 is patient only medication for headache and has been long standing narcotic agreement for dispensing 4. pain management for possible injections- consult while in patient 5. neurontin may be good alternative to T 3 6. patient states she has seen Dr Mcintosh at [facility] but find no notes 7. patient unsure of what medications have been used in the past I have seen and discussed above patient with Dr Melissa Medrano, neurology Pt seen and examined. Pt had escalation of chronic occipital headaches for the last 2-3 months. PERES more acute in the last few days. Took 7-8 Tylenol 3 over 12 or so hours, also had mult somatic complaints. Exam is normal, no TA tender, likely some cervical paraspinal muscle spasm.No concerning signs on exam. Imp cervicogenic heachache. Prednisone might break this escalation but listed as allergy. I would recommend pt start on Gabapentin 100 mg 1 at bedtime for 1 week then 1 twice a day. Common side effects discussed. Should minimize prn meds. Consider trigger point injections with pain management. Pt should see Melissa Hawkins as outpt in 3-4 weeks. Will sign off. Pt anxious to be discharged this evening. I have no objections. EZEKIEL Medrano MD
[2016-06-18] MEDS ORDERED: NURSING VERBAL MED ORDER ONE (18:30)
[2016-06-19 04:33] VITALS: BP 99/60; PULSE 66; TEMP 36.8; O2SAT 97
[2016-06-19] MEDS: ACETAMINOPHEN/CODEINE 300/30MG TAB PO PRN (04:55)
[2016-06-19 07:37] VITALS: BP 123/69; PULSE 66; TEMP 36.9; O2SAT 97
[2016-06-19] MEDS: AMLODIPINE BESYLATE 5 MG TAB PO SCH (07:42)
[2016-06-19] MEDS: ENOXAPARIN 30 MG/0.3 ML SYR SC SCH (07:42)
[2016-06-19] MEDS: ASPIRIN 81 MG ECTAB PO SCH (07:42)
--- NOTE | 2016-06-19 10:36 | Progress Note ---
Internal Med Progress Note Date of Service: Jun 19, 2016. Provider Documentation: SUBJECTIVE: Patient is seen and examined at bedside. Doing well. States headache, chest pain , epigastric pain resolved. Offers no other complaints. Eager to get discharged. OBJECTIVE: Vital Signs-as noted below Physical Exam: Vitals signs as noted above General Appearance:Thin, no apparent distress Head: normocephalic, Atraumatic Eyes: normal inspection, EOMI, PERRLA Neck: supple, Trachea midline Respiratory/Chest: Normal breath sounds, CTA, No accessory muscle use Cardiovascular: S1, S2, No murmur Abdomen/GI:Soft, Mild epigastric tender, Bowel sounds present Extremities/Musculoskelatal:normal inspection, no edema Neurologic/Psych:AAOX3, grossly no focal neurological deficits Skin: normal color, warm Lab data as noted below. ASSESSMENT & PLAN: Recurrent Intractable Headache: Headache present for many years and has been progressively worsening Likely secondary to cervical paraspinal muscle spasm CTA head: No acute process MRI head: No acute pathology Appreciate Neurology input Pain control, Unfortunately steroids precluded by past adverse reaction ESR:wnl; Lyme tires: Negative Plan to start on Gabapentin 100 mg 1 at bedtime for 1 week then increase to twice a day Off note patient likely may not take gabapentin as she is concerned about side effects Hypertension: BP controlled Continue amlodipine Atypical chest pain: likely secondary to anxiety Troponin X2 : Negative EKG: no signs of Ischemia CXR:No acute cardiopulmonary findings. ECHO: No wall motion abnormalities Abdominal discomfort: Unclear etiology likely secondary to anxiety CT ABD:No acute pathology Resolved Low BMI:19.4 Nutrition consulted Former tobacco abuse: DVT px: Lovenox SQ CODE STATUS: Full code DISPOSITION: Plan to discharge home today Follow up with Dr. Hough on 06/23/16 at 11:10 AM Follow up with Melissa MEDINA-Neurology on 07/13/16 at 11:00 AM PROCEDURES: MRI BRAIN: 1. Mild age-related changes including chronic small vessel change as well as atrophy. 2. The Study is otherwise negative with no evidence for abnormal postcontrast enhancement ECHO: * The left ventricle is hyperdynamic. * Ejection Fraction = >70 %. * The left ventricular wall motion is normal. * The right ventricular systolic function is normal. * The left atrial size is normal. * Right atrial size is normal. * There is mild to moderate tricuspid regurgitation. MRI C-spine: 1. Multilevel broad-based bulging discs seen primarily at C3-C4, C4-C5, C5-C6, and C7-T1 2. Moderate narrowing of the neuroforamina bilaterally at virtually all levels due to bulging disc components as well as moderate osteophytic reaction. 3. No evidence for high-grade component of spinal stenosis, nor is there evidence for major disc herniation 4. No evidence for abnormal postcontrast enhancement CT abd: 1. No acute process of the abdomen or pelvis. 2. Nonobstructive bowel pattern. 3. Unchanged 6 x 4.5 cm cystic lesion of the right soft tissue pelvic region CXR: No acute cardiopulmonary findings CTA head: 1. No acute intracranial findings. 2. No intracranial aneurysm or abrupt vessel cut off. Vital Signs: Date Time Temp Pulse Resp B/P Pulse Ox O2 Delivery O2 Flow Rate FiO2 06/19/16 08:00 Room Air 06/19/16 07:37 36.9 66 18 123/69 97 06/19/16 04:33 36.8 66 18 99/60 97 Room Air 06/19/16 04:00 Room Air 06/19/16 00:01 Room Air 06/18/16 23:31 36.8 65 16 113/67 97 Room Air 06/18/16 20:26 36.7 77 16 121/73 93 Room Air 06/18/16 20:00 Room Air 06/18/16 16:11 36.3 77 16 142/85 90 Room Air 06/18/16 16:00 Room Air 06/18/16 12:00 Room Air 06/18/16 11:27 36.8 98 18 123/70 99
[2016-06-19] MEDS ORDERED: NRN100 PO (10:59)
--- NOTE | 2016-06-19 11:03 | Discharge Summary ---
Discharge Summary Date of Service Jun 19, 2016. Discharge Summary Admission Date: Jun 17, 2016 at 22:18 Discharge Date: Jun 19, 2016 Discharge Disposition: Home Principal Diagnosis: Intractable Headache: secondary to cervical paraspinal muscle spasm Procedures: MRI BRAIN: 1. Mild age-related changes including chronic small vessel change as well as atrophy. 2. The Study is otherwise negative with no evidence for abnormal postcontrast enhancement ECHO: * The left ventricle is hyperdynamic. * Ejection Fraction = >70 %. * The left ventricular wall motion is normal. * The right ventricular systolic function is normal. * The left atrial size is normal. * Right atrial size is normal. * There is mild to moderate tricuspid regurgitation. MRI C-spine: 1. Multilevel broad-based bulging discs seen primarily at C3-C4, C4-C5, C5-C6, and C7-T1 2. Moderate narrowing of the neuroforamina bilaterally at virtually all levels due to bulging disc components as well as moderate osteophytic reaction. 3. No evidence for high-grade component of spinal stenosis, nor is there evidence for major disc herniation 4. No evidence for abnormal postcontrast enhancement CT abd: 1. No acute process of the abdomen or pelvis. 2. Nonobstructive bowel pattern. 3. Unchanged 6 x 4.5 cm cystic lesion of the right soft tissue pelvic region CXR: No acute cardiopulmonary findings CTA head: 1. No acute intracranial findings. 2. No intracranial aneurysm or abrupt vessel cut off. Consultations: Neurology Pending Studies/Follow-Up: Follow up with Dr. Hough on 06/23/16 at 11:10 AM ; Follow up with [facility] on 07/13/16 at 11:00 AM Medication Reconciliation New Medications: Gabapentin (Gabapentin) 100 Mg Cap 100 MG PO HS for 30 Days, #60 Start taking one tablet by mouth at bedtime for 1 week and then twice a day Continued Medications: Acetaminophen/Codeine (Tylenol W/Codeine #3) 300 Mg/30 Mg Tab 1-2 TAB PO Q4H PRN for Pain, TAB Try to avoid Amlodipine Besylate (Amlodipine Besylate) 5 Mg Tab 10 MG PO DAILY for 30 Days, #60 Aspirin (Aspir-81) 81 Mg Tab 81 MG PO DAILY for 90 Days, #90 TAB 3 Refills Lorazepam (Ativan) 1 Mg Tab 1-2 MG PO HS PRN for Anxiety and/or Sedation, TAB Admission Information HPI (per Admitting provider): CHIEF COMPLAINT: Headache. HISTORY OF PRESENT ILLNESS: Medical history significant for hypertension, anxiety, past tobacco abuse as per records. Recent confinement last March 2013 for post headache symptoms attributed to hypertensive urgency. As per patient, in the last 20 years she has had posterior headache symptoms occurring about 3 times a week, sometimes worse with neck motion. Denies visual problems, relieved by intake of home narcotics. Of late, headache symptoms worsening. Denies weakness in the arms and legs. She was told she may have migraine. Patient also noted chest discomfort from palpitations, fast heartbeat and a little shortness of breath. worried this patient taking too much Tylenol with Codeine. Patient also complaining of central abdominal discomfort with nausea. No change in bowel movements. Sent to Emergency Room. Intractable headache in the Emergency Room. Physical Exam (per Admitting): PHYSICAL EXAMINATION: VITAL SIGNS: Blood pressure was noted to be 180/90 and later 160/70, pulse rate 74, RR 16, temperature 37, sats 95 on room. GENERAL: Noted to be anxious. No respiratory distress. hyposthenic SKIN: Normal color. HEENT: [place] palpebral conjunctivae. Dry mucosa. NECK: posterior tenderness. Full range of motion, although a bit slow. CHEST: Clear to auscultation. HEART: Regular rate and rhythm. ABDOMEN: Some distention, nontender. EXTREMITIES: No edema. no tenderness NEUROLOGIC: No gross focality. Hospital Course Recurrent Intractable Headache: Headache present for many years and has been progressively worsening Likely secondary to cervical paraspinal muscle spasm CTA head: No acute process MRI head: No acute pathology Appreciate Neurology input Pain control, Unfortunately steroids precluded by past adverse reaction ESR:wnl; Lyme tires: Negative Plan to start on Gabapentin 100 mg 1 at bedtime for 1 week then increase to twice a day Off note patient likely may not take gabapentin as she is concerned about side effects Hypertension: BP controlled Continue amlodipine Atypical chest pain: likely secondary to anxiety Troponin X2 : Negative EKG: no signs of Ischemia CXR:No acute cardiopulmonary findings. ECHO: No wall motion abnormalities Abdominal discomfort: Unclear etiology likely secondary to anxiety CT ABD:No acute pathology Resolved Low BMI:19.4 Nutrition consulted Former tobacco abuse: DVT px: Lovenox SQ CODE STATUS: Full code DISPOSITION: Plan to discharge home today Follow up with Dr. Hough on 06/23/16 at 11:10 AM Follow up with [facility] on 07/13/16 at 11:00 AM PROCEDURES: MRI BRAIN: 1. Mild age-related changes including chronic small vessel change as well as atrophy. 2. The Study is otherwise negative with no evidence for abnormal postcontrast enhancement ECHO: * The left ventricle is hyperdynamic. * Ejection Fraction = >70 %. * The left ventricular wall motion is normal. * The right ventricular systolic function is normal. * The left atrial size is normal. * Right atrial size is normal. * There is mild to moderate tricuspid regurgitation. MRI C-spine: 1. Multilevel broad-based bulging discs seen primarily at C3-C4, C4-C5, C5-C6, and C7-T1 2. Moderate narrowing of the neuroforamina bilaterally at virtually all levels due to bulging disc components as well as moderate osteophytic reaction. 3. No evidence for high-grade component of spinal stenosis, nor is there evidence for major disc herniation 4. No evidence for abnormal postcontrast enhancement CT abd: 1. No acute process of the abdomen or pelvis. 2. Nonobstructive bowel pattern. 3. Unchanged 6 x 4.5 cm cystic lesion of the right soft tissue pelvic region CXR: No acute cardiopulmonary findings CTA head: 1. No acute intracranial findings. 2. No intracranial aneurysm or abrupt vessel cut off. Total time spent on discharge = This includes examination of the patient, discharge planning, medication reconciliation, and communication with other providers. Discharge Instructions Discharge Instructions Date of Service Jun 19, 2016. Admission Reason for Admission: Chest Pain, Intractable Headache Discharge Discharge Diagnosis / Problem: Intractable Headache: secondary to cervical paraspinal muscle spasm Discharge Goals Goal(s): Decrease discomfort, Improve function Activity Recommendations Activity Limitations: resume your previous activity Exercise/Sports Limitations: as tolerated . Instructions / Follow-Up Instructions / Follow-Up Follow up with Dr. Hough on 06/23/16 at 11:10 AM ; Follow up with [facility] on 07/13/16 at 11:00 AM Current Hospital Diet Patient's current hospital diet: Gluten Free Diet Discharge Diet Recommended Diet: Gluten Free Diet Pending Studies Studies pending at discharge: no Medical Emergencies . Who to Call and When: Medical Emergencies: If at any time you feel your situation is an emergency, please call 911 immediately. . Non-Emergent Contact Non-Emergency issues call your: Primary Care Provider, Neurologist Call Non-Emergent contact if: you have a fever, your pain is not controlled, your pain is worsening, your pain is unusual for you, you have any medication questions If your headache is worsening. . "Provider Documentation" section prepared by Zhou Young. VTE Core Measure Inpt VTE Proph given/why not?: Enoxaparin (Lovenox)SQ
[2016-06-19 11:15] VITALS: BP 123/69; PULSE 66; TEMP 36.9; O2SAT 97
== END 2016-06-19 13:40 | disposition home or self-care (01) ==
LOC: ENRESERVDT → ENRESERVTM → C.EDB 14:12 → C.MED 22:18
PROVIDERS: ADMIT Internal Medicine; ATTEND Internal Medicine
DX: R07.89 Other chest pain (principal); R51 Headache; I10 Essential (primary) hypertension; E46 Unspecified protein-calorie malnutrition; Z68.1 Body mass index [BMI] 19.9 or less, adult; Z87.891 Personal history of nicotine dependence; Z88.2 Allergy status to sulfonamides; Z90.710 Acquired absence of both cervix and uterus; Z82.49 Family history of ischemic heart disease and other diseases of the circulatory system; Z80.0 Family history of malignant neoplasm of digestive organs

== ENCOUNTER 2017-01-06 13:50 | Emergency (ER) | payer OTHER ==
[~2017-01-06] VITALS: Ht 149.9 cm; Wt 44.1 kg
[~2017-01-06 13:50] MED LIST changes: +NRN100 PO; -VALA1TAB PO
[2017-01-06 14:17] VITALS: TEMP 37.6; O2SAT 97; Ht 149.9 cm; Wt 44.1 kg
[2017-01-06] MEDS ORDERED: ATV1 PO (15:32)
[2017-01-06] MEDS ORDERED: AMLO-110 PO (15:32)
[2017-01-06] MEDS ORDERED: SODIUM CHLORIDE 0.9% 1000ML 1,000 ML IV STA (15:44)
[2017-01-06] MEDS ORDERED: ONDANSETRON INJ 2 MG/ML 2 ML VIAL IV STA (15:44)
[2017-01-06] MEDS ORDERED: PANTOprazole INJ 40 MG in SYRINGE 0 ML IV ONE (15:45)
[2017-01-06] MEDS ORDERED: OPTIRAY 320 IV PRN (16:00)
[2017-01-06 16:52] LABS: BASO % 0.1 %; BASO ABS # 0.01 K/uL (0-0.2); COMPLETE YES; EOS % 0.1 %; HEMATOCRIT 36.7 % (37-47); IG% 0.3 %; LYMPH % 10.3 %; LYMPH ABS # 0.89 K/uL (1.2-3.4); MEAN CELL VOLUME 93.6 fL (80-100); MEAN CORPUSCULAR HEMOGLOBIN 33.7 pg (25-34); MEAN PLATELET VOLUME 9.1 fL (7.4-10.4); MONO % 4.9 %; NEUT % 84.3 %; PLATELET COUNT 336 K/uL (130-400); RED BLOOD COUNT 3.92 M/uL (4.2-5.4)
[2017-01-06 17:04] LABS: PROTHROMBIN TIME (PATIENT) 10.2 SECONDS (9.0-12.0)
[2017-01-06 17:12] LABS: ALT/SGPT 49 U/L (12-78); BLOOD UREA NITROGEN 9 mg/dl (7-18); CALCIUM 9.5 mg/dl (8.5-10.1); CARBON DIOXIDE 23 mmol/L (21-32); CHLORIDE 102 mmol/L (98-107); CREATININE 0.79 mg/dl (0.60-1.20); GLUCOSE 89 mg/dl (70-99); MAGNESIUM 2.1 mg/dl (1.8-2.4); POTASSIUM 3.5 mmol/L (3.5-5.1); SODIUM 135 mmol/L (136-145)
[2017-01-06 17:22] LABS: ALB/GLOB RATIO 1.2 (0.9-2); ALKALINE PHOSPHATASE 79 U/L (45-117); AST/SGOT 27 U/L (15-37)
--- NOTE | 2017-01-06 17:43 | DIAGNOSTIC IMAGING REPORT ---
(CHEST FOR PE) ANGIO WITH HISTORY: 71 years-old Female presents with acute atypical chest pain which radiates to the back TECHNIQUE: Multiple CTA images of the chest were obtained after the intravenous administration of 94 ml Optiray 320. Coronal and sagittal MIPS were obtained from the axial data set and were submitted for review. A dose lowering technique was utilized adhering to the principles of ALARA. COMPARISON: CTA abdomen and pelvis of same day, chest radiograph 06/17/2016. FINDINGS: CTA: Heart is mildly enlarged without pericardial effusion. There is no thoracic aortic dissection or aneurysm identified. Mild to moderate mixed plaquing is seen at the aortic arch and origin of the great vessels appear patent. The distal segmental and subsegmental branches of the pulmonary arterial tree are not well seen secondary to contrast bolus timing and respiratory motion. No pulmonary embolus identified. CT CHEST: No focal thyroid mass identified. No pathologic adenopathy. Mild centrilobular emphysematous changes within upper lung zone predominant distribution. Lungs are hyperinflated. No pneumothorax, pleural effusion or focal airspace consolidation. No suspicious pulmonary nodules are identified. The central airways are patent. Imaged upper abdominal structures demonstrate no acute abnormality. There are a few scattered nonspecific calcifications of the right breast parenchyma. The bones are mildly demineralized. No acute compression deformity identified. IMPRESSION: 1. No acute intrathoracic abnormality identified, specifically no acute aortic pathology or evidence of pulmonary thromboembolic disease. Please note however that evaluation of the pulmonary arterial tree is limited secondary to respiratory motion as above. 2. Emphysema. The above report was generated using voice recognition software. It may contain grammatical, syntax or spelling errors. Electronically signed by: Bandar Best M.D. 01/06/2017 5:42 PM Dictated Date/Time: 01/06/2017 5:36 PM
--- NOTE | 2017-01-06 17:49 | DIAGNOSTIC IMAGING REPORT ---
CT ANGIOGRAM OF THE ABDOMEN AND PELVIS CLINICAL HISTORY: Atypical chest pain. Back pain. COMPARISON STUDY: Abdominal CT dated 06/18/2016 TECHNIQUE: Following the IV administration of 119 cc of Optiray 320, CT angiogram of the abdomen and pelvis was performed from the lung bases the proximal femora. Images are reviewed in the axial, sagittal, and coronal planes. 3-D MIPS images are created and assessed. IV contrast was administered without complication. A dose lowering technique was utilized adhering to the principles of ALARA. Examination is degraded by motion artifact. CT DOSE: 401.25 mGy.cm FINDINGS: Lower chest: There is mild right-sided cardiac enlargement. No pericardial effusion is seen. Evaluation of the lung bases is degraded by motion artifact. No airspace consolidation or pleural effusion is identified. Liver: The contrast-enhanced liver is normal in size, contour, and attenuation. There is no intrahepatic or ductal dilatation. The main portal veins appear patent. Small hepatic cysts are again suggested. Gallbladder: Unremarkable. Spleen: Normal in size and attenuation. Pancreas: Moderately atrophic and grossly unremarkable. Adrenal glands: Unremarkable. Kidneys: The contrast enhanced kidneys demonstrate cortical atrophy and are without hydronephrosis. The kidneys enhance symmetrically. Abdominal aorta and iliac arteries: There is moderate to advanced atherosclerotic calcification of the abdominal aorta. Abdominal aorta is normal in caliber. No dissection is seen. The iliac arteries are normal in caliber and widely patent bilaterally. Major branches of the abdominal aorta: The celiac trunk is widely patent. There is less than 50% stenosis of the superior mesenteric artery approximate 1.5 cm from its origin. The superior mesenteric artery is otherwise widely patent, as is the inferior mesenteric artery. Hepatic arterial anatomy is conventional. The splenic artery is patent. Single bilateral renal arteries are widely patent. Bowel: The small bowel and colon are normal in course and caliber. The appendix is not identified. Peritoneum: There is no intraperitoneal free air or abdominal ascites. Lymphadenopathy: None. Pelvic viscera: The bladder is normal as visualized. The uterus is surgically absent. There is a 6.6 cm simple appearing cystic lesion in the right adnexa, likely related to the right ovary. Skeletal structures: The skeletal structures are osteopenic. There is mild lumbosacral spondylosis. No lytic or blastic bony lesions are seen. IMPRESSION: 1. Motion degraded examination. 2. There is no aneurysm or dissection seen involving the abdominal aorta. 3. Unremarkable CT angiogram of the major branches of the abdominal aorta. 4. No acute infectious or inflammatory findings are identified in the abdomen or pelvis. 5. There is a 6.6 cm simple appearing cystic lesion in the right ovary. This was also seen on 06/18/2016. This is an abnormal finding in a 71-year-old female and if not previously performed follow-up with a nonemergent pelvic ultrasound is recommended. 6. Additional findings as above. Electronically signed by: Antione Doan M.D. 01/06/2017 5:48 PM Dictated Date/Time: 01/06/2017 5:41 PM
[2017-01-06] MEDS ORDERED: LORAZEPAM 0.5 MG TAB SL STA (18:03)
[2017-01-06] MEDS ORDERED: ALUMINUM/MAGNESIUM SUSP 30 ML UDC PO STA (18:03)
--- NOTE | 2017-01-06 19:48 | EMERGENCY ROOM VISIT NOTE ---
History Report prepared by Estela: Daniel Brennan Under the Supervision of: Dr. Dilcia Lindsey D.O. First contact with patient: 15:28 Chief Complaint: CHEST PAIN Stated Complaint: CHEST PAIN/ABD PAIN/ANXIETY Nursing Triage Summary: pt was having neck pain last evening took 2 tylenol #3 at 1915, 2215, 0030, and again at 1415. had appt with pcp sent here for eval by ambulance. pt was hyperventilating and nonrebreather use for reverse therapy, pt was given 4mg zofran and 0.5 mg ativan prehospital. pt started vomiting this am at 0230 after taking last dose of pain med. spouse reports pt was incontinent of stool also. pt now reports intermittent chest pain and sob described as pressure radiating to back, shoulder, and bilat arms. saw dr hough at office. pt has hx of arthritis in neck which spouse believes caused pt to take too much meds. pt also has hx of anxiety History of Present Illness The patient is a 71 year old female who presents to the Emergency Room by EMS with complaints of intermittent chest pain beginning last night. She states that her symptoms began with a sore throat and mouth burning two days ago. She states that she developed diarrhea this morning. The patient is on Tylenol 3 for chronic neck pain, and states that she took an additional two pills yesterday because she couldn't sleep. She states that she had six pills total. She states that she had three episodes of diarrhea, followed by an episode of vomiting a few hours after taking the final dose of Tylenol 3. Patient states she occasionally develops vomiting and diarrhea secondary to anxiety or medications. The patient states that she developed her chest pain following this. She also complains of abdominal pain and SOB during episode this afternoon , however states these are now improving. She notes that her hands felt numb en route, but this has resolved since. She states that her neck hurts as well, but this is likely her chronic pain. No new paresthesias, no headaches and no fevers. The patient's symptoms are worsened with laying down. She has no history of GERD. She notes that he was seen by her PCP for her symptoms shortly prior to arrival and referred to the ED. She had a low-grade fever at this time. The patient has been admitted to the hospital for similar symptoms in the past. She has a history of HTN. She states that she is not able to eat dinner unless she takes Ativan, and states this has been true for several months. The patient denies weakness. Patient states feels better since being given Ativan and Zofran by EMS en route. Source of History: patient Onset: Last night Position: chest Timing: intermittent Associated Symptoms: + fevers (low-grade), + sorethroat, + SOB, + vomiting, + abdominal pain, + diarrhea, No weakness Review of Systems See HPI for pertinent positives & negatives. A total of 10 systems reviewed and were otherwise negative. Past Medical & Surgical Medical Problems: (1) HTN (hypertension) Family History FH: [place] (myocardial infarction) FATHER FH: throat cancer MOTHER Social History Smoking Status: Never Smoker Alcohol Use: none Marital Status: Housing Status: lives with family Current/Historical Medications Scheduled Amlodipine (Norvasc), 2 TAB PO DAILY Aspirin (Aspir-81), 81 MG PO DAILY Scheduled PRN Acetaminophen/Codeine (Tylenol W/Codeine #3), 1-2 TAB PO Q4H PRN for Pain Lorazepam (Lorazepam), 2 TAB PO HS PRN for Sleep Allergies Coded Allergies: Brompheniramine (Verified Allergy, Unknown, UNKNOWN, 01/06/17) Buspirone (Verified Allergy, Unknown, UNKNOWN, 01/06/17) Chlorzoxazone (Verified Allergy, Unknown, U NKNOWN, 01/06/17) Diphenhydramine (Verified Allergy, Unknown, UNKNOWN, 01/06/17) Famotidine (Verified Allergy, Unknown, UNKNOWN, 01/06/17) Gluten (Unverified Allergy, Unknown, unknown, 01/06/17) Ibuprofen (Unverified Allergy, Unknown, hives, 01/06/17) Meperidine (Verified Allergy, Unknown, ., 01/06/17) Penicillins (Unverified Allergy, Unknown, 01/06/17) Phenylpropanolamine (Verified Allergy, Unknown, UNKNOWN, 01/06/17) Sulfa Drugs (Unverified Allergy, Unknown, 01/06/17) Thiopental (Verified Allergy, Unknown, ., 01/06/17) Metoprolol (Verified Adverse Reaction, Intermediate, SUDDEN SEVERE MOOD CHANGES, 01/06/17) Prednisone (Verified Adverse Reaction, Mild, o, 01/06/17) increased iop Acetaminophen (Verified Adverse Reaction, Unknown, 0, 01/06/17) as per [facility] records Oxycodone (Verified Adverse Reaction, Unknown, 0, 01/06/17) as per [facility] outpx records Uncoded Allergies: IMPERIUM 3 (Allergy, Unknown, UNKNOWN, 04/29/13) Physical Exam Vital Signs Date Time Temp Pulse Resp B/P (MAP) Pulse Ox O2 Delivery O2 Flow Rate FiO2 01/06/17 20:25 74 20 134/79 99 01/06/17 18:30 75 18 134/76 97 Room Air 01/06/17 17:09 76 18 145/71 96 Room Air 01/06/17 15:26 73 20 133/82 96 Room Air 01/06/17 14:17 97 Room Air 01/06/17 14:17 37.6 81 22 155/83 98 Room Air 01/06/17 14:06 77 Physical Exam GENERAL: alert, anxious appearing, well nourished, no distress, non-toxic EYE EXAM: normal conjunctiva, PERRL and EOM's grossly intact OROPHARYNX: no exudate, no erythema, lips, buccal mucosa, and tongue normal and mucous membranes are moist NECK: supple, no nuchal rigidity, no adenopathy, non-tender LUNGS: Clear to auscultation. Normal chest wall mechanics HEART: no murmurs, S1 normal and S2 normal CHEST: Mild reproducible chest wall pain to palpation. ABDOMEN: abdomen soft, non-tender, normo-active bowel sounds, no masses, no rebound or guarding. BACK: Back is symmetrical on inspection and there is no deformity, no midline tenderness, no CVA tenderness. SKIN: no rashes and no bruising UPPER EXTREMITIES: upper extremities are grossly normal. LOWER EXTREMITIES: No pitting edema. NEURO EXAM: Normal sensorium, cranial nerves II-XII grossly intact, normal speech, no gross weakness of arms, no gross weakness of legs. Medical Decision & Procedures ER Provider Diagnostic Interpretation: CT:Per my review, radiologist interpretation. (CHEST FOR PE) ANGIO WITH FINDINGS: CTA: Heart is mildly enlarged without pericardial effusion. There is no thoracic aortic dissection or aneurysm identified. Mild to moderate mixed plaquing is seen at the aortic arch and origin of the great vessels appear patent. The distal segmental and subsegmental branches of the pulmonary arterial tree are not well seen secondary to contrast bolus timing and respiratory motion. No pulmonary embolus identified. CT CHEST: No focal thyroid mass identified. No pathologic adenopathy. Mild centrilobular emphysematous changes within upper lung zone predominant distribution. Lungs are hyperinflated. No pneumothorax, pleural effusion or focal airspace consolidation. No suspicious pulmonary nodules are identified. The central airways are patent. Imaged upper abdominal structures demonstrate no acute abnormality. There are a few scattered nonspecific calcifications of the right breast parenchyma. The bones are mildly demineralized. No acute compression deformity identified. IMPRESSION: 1. No acute intrathoracic abnormality identified, specifically no acute aortic pathology or evidence of pulmonary thromboembolic disease. Please note however that evaluation of the pulmonary arterial tree is limited secondary to respiratory motion as above. 2. Emphysema. The above report was generated using voice recognition software. It may contain grammatical, syntax or spelling errors. Electronically signed by: Bandar Best M.D. 01/06/2017 5:[address] ANGIOGRAM OF THE ABDOMEN AND PELVIS FINDINGS: Lower chest: There is mild right-sided cardiac enlargement. No pericardial effusion is seen. Evaluation of the lung bases is degraded by motion artifact. No airspace consolidation or pleural effusion is identified. Liver: The contrast-enhanced liver is normal in size, contour, and attenuation. There is no intrahepatic or ductal dilatation. The main portal veins appear patent. Small hepatic cysts are again suggested. Gallbladder: Unremarkable. Spleen: Normal in size and attenuation. Pancreas: Moderately atrophic and grossly unremarkable. Adrenal glands: Unremarkable. Kidneys: The contrast enhanced kidneys demonstrate cortical atrophy and are without hydronephrosis. The kidneys enhance symmetrically. Abdominal aorta and iliac arteries: There is moderate to advanced atherosclerotic calcification of the abdominal aorta. Abdominal aorta is normal in caliber. No dissection is seen. The iliac arteries are normal in caliber and widely patent bilaterally. Major branches of the abdominal aorta: The celiac trunk is widely patent. There is less than 50% stenosis of the superior mesenteric artery approximate 1.5 cm from its origin. The superior mesenteric artery is otherwise widely patent, as is the inferior mesenteric artery. Hepatic arterial anatomy is conventional. The splenic artery is patent. Single bilateral renal arteries are widely patent. Bowel: The small bowel and colon are normal in course and caliber. The appendix is not identified. Peritoneum: There is no intraperitoneal free air or abdominal ascites. Lymphadenopathy: None. Pelvic viscera: The bladder is normal as visualized. The uterus is surgically absent. There is a 6.6 cm simple appearing cystic lesion in the right adnexa, likely related to the right ovary. Skeletal structures: The skeletal structures are osteopenic. There is mild lumbosacral spondylosis. No lytic or blastic bony lesions are seen. IMPRESSION: 1. Motion degraded examination. 2. There is no aneurysm or dissection seen involving the abdominal aorta. 3. Unremarkable CT angiogram of the major branches of the abdominal aorta. 4. No acute infectious or inflammatory findings are identified in the abdomen or pelvis. 5. There is a 6.6 cm simple appearing cystic lesion in the right ovary. This was also seen on 06/18/2016. This is an abnormal finding in a 71-year-old female and if not previously performed follow-up with a nonemergent pelvic ultrasound is recommended. 6. Additional findings as above. Electronically signed by: Antione Doan M.D. 01/06/2017 5:48 PM Laboratory Results 01/06/17 16:10 Red Blood Count 3.92, Mean Corpuscular Volume 93.6, Mean Corpuscular Hemoglobin 33.7, Mean Corpuscular Hemoglobin Concent 36.0, Mean Platelet Volume 9.1, Neutrophils (%) (Auto) 84.3, Lymphocytes (%) (Auto) 10.3, Monocytes (%) (Auto) 4.9, Eosinophils (%) (Auto) 0.1, Basophils (%) (Auto) 0.1, Neutrophils # (Auto) 7.24, Lymphocytes # (Auto) 0.89, Monocytes # (Auto) 0.42, Eosinophils # (Auto) 0.01, Basophils # (Auto) 0.01 01/06/17 16:10 Test 01/06/17 16:10 01/06/17 19:31 White Blood Count 8.60 K/uL (4.8-10.8) Red Blood Count 3.92 M/uL (4.2-5.4) Hemoglobin 13.2 g/dL (12.0-16.0) Hematocrit 36.7 % (37-47) Mean Corpuscular Volume 93.6 fL (80-100) Mean Corpuscular Hemoglobin 33.7 pg (25-34) Mean Corpuscular Hemoglobin Concent 36.0 g/dl (32-36) Platelet Count 336 K/uL (130-400) Mean Platelet Volume 9.1 fL (7.4-10.4) Neutrophils (%) (Auto) 84.3 % Lymphocytes (%) (Auto) 10.3 % Monocytes (%) (Auto) 4.9 % Eosinophils (%) (Auto) 0.1 % Basophils (%) (Auto) 0.1 % Neutrophils # (Auto) 7.24 K/uL (1.4-6.5) Lymphocytes # (Auto) 0.89 K/uL (1.2-3.4) Monocytes # (Auto) 0.42 K/uL (0.11-0.59) Eosinophils # (Auto) 0.01 K/uL (0-0.5) Basophils # (Auto) 0.01 K/uL (0-0.2) RDW Standard Deviation 40.1 fL (36.4-46.3) RDW Coefficient of Variation 11.9 % (11.5-14.5) Immature Granulocyte % (Auto) 0.3 % Immature Granulocyte # (Auto) 0.03 K/uL (0.00-0.02) Prothrombin Time 10.2 SECONDS (9.0-12.0) Prothromb Time International Ratio 1.0 (0.9-1.1) Anion Gap 10.0 mmol/L (3-11) Est Creatinine Clear Calc Drug Dose 44.6 ml/min Estimated GFR () 87.3 Estimated GFR (Non- 75.3 BUN/Creatinine Ratio 11.0 (10-20) Calcium Level 9.5 mg/dl (8.5-10.1) Magnesium Level 2.1 mg/dl (1.8-2.4) Total Bilirubin 1.0 mg/dl (0.2-1) Aspartate Amino Transf (AST/SGOT) 27 U/L (15-37) Alanine Aminotransferase (ALT/SGPT) 49 U/L (12-78) Alkaline Phosphatase 79 U/L (45-117) Troponin I < 0.015 ng/ml (0-0.045) Pro-B-Type Natriuretic Peptide 404 pg/ml (0-900) Total Protein 7.6 gm/dl (6.4-8.2) Albumin 4.2 gm/dl (3.4-5.0) Globulin 3.4 gm/dl (2.5-4.0) Albumin/Globulin Ratio 1.2 (0.9-2) Thyroid Stimulating Hormone (TSH) 1.540 uIu/ml (0.300-4.500) Acetaminophen Level < 2 ug/ml (10-30) Bedside Troponin I < 0.030 ng/ml (0-0.045) Laboratory results per my review. Medications Administered Medications (Trade) Dose Ordered Sig/Bella Route Start Time Stop Time Status Last Admin Dose Admin Sodium Chloride 1,000 ml @ 999 mls/hr Q1H1M STAT IV 01/06/17 15:44 01/06/17 16:44 DC 01/06/17 16:01 999 MLS/HR Pantoprazole Sodium 40 mg/ Syringe 10 ml @ 5 mls/min NOW ONCE IV 01/06/17 15:45 01/06/17 15:48 DC 01/06/17 16:20 5 MLS/MIN Ondansetron HCl (Zofran Inj) 4 mg NOW STAT IV 01/06/17 15:44 01/06/17 15:48 DC 01/06/17 16:01 4 MG Lorazepam (Ativan Tab) 0.5 mg NOW STAT SL 01/06/17 18:03 01/06/17 18:04 DC 01/06/17 18:11 0.5 MG Al Hydroxide/Mg Hydroxide (Maalox Susp) 15 ml NOW STAT PO 01/06/17 18:03 01/06/17 18:04 DC 01/06/17 18:11 15 ML ECG Indication: chest pain Rate (beats per minute): 82 Rhythm: normal sinus Findings: no acute ischemic change, no ectopy, other (Normal intervals. Normal axis. Baseline artifact noted. ) ED Course 1531: The patient was evaluated in room A9B. A complete history and physical exam was performed. 1544: Ordered Zofran Inj 4 mg IV, Sodium Chloride 1000 ml @ 999 mls/hr IV, Pantoprazole Sodium 40 mg/Syringe 10 mL @ 5 mL/min IV. 1801: I updated the patient on her test results. She is still having pain. 1803: Ordered Maalox Susp 15 mL PO, Ativan Tab 0.5 mg SL. 2030: Upon reevaluation, the patient is feeling better. I discussed the findings and the treatment plan with the patient. She verbalizes agreement and understanding. She was discharged home. Medical Decision Differential diagnosis: Etiologies such as cardiac ischemia, aortic dissection, pulmonary embolism, pneumonia, pneumothorax, musculoskeletal, infections, pericarditis, myocarditis , esophageal rupture, gastrointestinal, as well as others were entertained. Patient with reassuring labs and imaging here area most likely symptoms related to poor compliance regarding use of medications and significant anxiety. She with multiple chronic medical problems including chronic medical pain. Paresthesias noted today likely secondary to anxiety, doubt acute spinal cord injury/nerve impingement/vascular etiology. Doubt CVA, ACS. Discussed the patient appropriate use of medications. Has been very concerned patient takes extra of her medications. I discussed with her importance of taking them as prescribed. I do not feel patient sustained a toxic Tylenol ingestion. Patient otherwise well-appearing, requesting additional Ativan for her anxiety. Patient with no recurrent vomiting here and no diarrhea. Patient's exam otherwise unremarkable. Doubt bacteremia/sepsis. Patient with no complaints , normal nonfocal neuro exam at bedside. Discussed with them follow-up with family doctor, proper use of medications, symptoms to watch and return for, they verbalized understanding were agreeable with plan. Medication Reconcilliation Current Medication List: was personally reviewed by me Blood Pressure Screening Patient's blood pressure: Elevated blood pressure Blood pressure disposition: Elevated BP felt to be situational Impression Primary Impression: Anxiety Additional Impression: Chest pain Scribe Attestation The scribe's documentation has been prepared under my direction and personally reviewed by me in its entirety. I confirm that the note above accurately reflects all work, treatment, procedures, and medical decision making performed by me. Departure Information Dispostion Home / Self-Care Referrals Guanakito Hough III, M.D. (PCP) Patient Instructions [facility] Additional Instructions Please follow up with your family doctor. Please take your medications as prescribed and do not take additional medications or take them sooner than you' re supposed to. If you feel your symptoms are changing or worsening, or feel your medications are not controlling your chronic pain, please talk this over with your family doctor. If you have any other acutely new or concerning symptoms, please return the emergency room. Please continue to monitor for any recurrent vomiting or diarrhea. Please eat a light bland diet and sip clear liquids frequently to stay well-hydrated. If you have recurrent vomiting, recurrent diarrhea, noticed blood in your vomit or stools, develop fevers or chills, please return the emergency room. Problem Qualifiers Additional Impression: Chest pain Chest pain type: unspecified Qualified Codes: R07.9 - Chest pain, unspecified
[2017-01-06 20:25] VITALS: BP 134/79; PULSE 74; O2SAT 99
== END 2017-01-06 20:28 | disposition home or self-care (01) ==
LOC: EDBD 13:50 → C.EDA 13:51
DX: F41.9 Anxiety disorder, unspecified (principal); R07.9 Chest pain, unspecified; G89.29 Other chronic pain; M54.2 Cervicalgia; I10 Essential (primary) hypertension; Z82.49 Family history of ischemic heart disease and other diseases of the circulatory system; Z80.0 Family history of malignant neoplasm of digestive organs; Z79.82 Long term (current) use of aspirin; Z79.899 Other long term (current) drug therapy; Z91.19 Patient's noncompliance with other medical treatment and regimen

== ENCOUNTER 2017-05-18 08:46 | Emergency (ER) | payer OTHER ==
[~2017-05-18] VITALS: Ht 149.9 cm; Wt 43.0 kg
[~2017-05-18 08:46] MED LIST changes: +AMLO-110 PO; -ATV/1 PO; +ATV1 PO; -NRN100 PO; -NRV/5 PO
[2017-05-18 08:58] VITALS: TEMP 36.4; Ht 149.9 cm; Wt 43.0 kg
[2017-05-18] MEDS ORDERED: ONDANSETRON INJ 2 MG/ML 2 ML VIAL IV STA (09:09)
[2017-05-18] MEDS ORDERED: SODIUM CHLORIDE 0.9% 1000ML 1,000 ML IV STA (09:09)
[2017-05-18] MEDS: MoRPHine SULFATE 4 MG/ML 1 ML CARP\\VIAL IV PRN ×2 (09:29→10:44)
[2017-05-18 09:38] LABS: BASO % 0.3 %; BASO ABS # 0.02 K/uL (0-0.2); EOS % 1.3 %; EOS ABS # 0.09 K/uL (0-0.5); HEMATOCRIT 40.8 % (37-47); HEMOGLOBIN 14.7 g/dL (12.0-16.0); IG# 0.02 K/uL (0.00-0.02); LYMPH % 15.7 %; LYMPH ABS # 1.12 K/uL (1.2-3.4); MEAN CELL VOLUME 97.1 fL (80-100); MEAN PLATELET VOLUME 8.6 fL (7.4-10.4); MONO % 4.2 %; NEUT % 78.2 %; PLATELET COUNT 369 K/uL (130-400); RED CELL DISTRIBUTION WIDTH CV 12.6 % (11.5-14.5); RED CELL DISTRIBUTION WIDTH SD 44.2 fL (36.4-46.3); WHITE BLOOD COUNT 7.15 K/uL (4.8-10.8)
[2017-05-18 09:47] LABS: PTT PATIENT 26.7 SECONDS (21.0-31.0)
[2017-05-18 10:02] LABS: BLOOD UREA NITROGEN 11 mg/dl (7-18); CALCIUM 9.4 mg/dl (8.5-10.1); CARBON DIOXIDE 26 mmol/L (21-32); GLUCOSE 99 mg/dl (70-99); LIPASE 147 U/L (73-393); POTASSIUM 3.7 mmol/L (3.5-5.1); SODIUM 138 mmol/L (136-145)
[2017-05-18 10:07] LABS: CKMB 0.6 ng/ml (0.5-3.6)
--- NOTE | 2017-05-18 10:37 | DIAGNOSTIC IMAGING REPORT ---
CHEST ONE VIEW PORTABLE CLINICAL HISTORY: EVALUATE ALTERED MENTAL STATUS/WEAKNESS COMPARISON STUDY: 06/17/2016 FINDINGS: The bones soft tissues and hemidiaphragms are normal. The cardiomediastinal silhouette is normal. The lungs are clear. The pulmonary vasculature is normal. IMPRESSION: Negative chest. The above report was generated using voice recognition software. It may contain grammatical, syntax or spelling errors. Electronically signed by: Jong Lopez M.D. 05/18/2017 10:36 AM Dictated Date/Time: 05/18/2017 10:34 AM
--- NOTE | 2017-05-18 11:32 | DIAGNOSTIC IMAGING REPORT ---
HEAD WITHOUT CONTRAST (CT) CT DOSE: 898.71 mGy.cm HISTORY: Altered mental status EVALUATE ALTERED MENTAL STATUS/WEAKNESS TECHNIQUE: Multiaxial CT images of the head were performed without the use of intravenous contrast. A dose lowering technique was utilized adhering to the principles of ALARA. Comparison: 06/17/2016 Findings: The paranasal sinuses and mastoid air cells are clear. The calvarium and skull base are intact. The ventricles and sulci are within normal limits. There is no mass, hematoma, midline shift, or acute infarct. Impression: No acute intracranial abnormality. The above report was generated using voice recognition software. It may contain grammatical, syntax or spelling errors. Electronically signed by: Jong Lopez M.D. 05/18/2017 11:31 AM Dictated Date/Time: 05/18/2017 11:29 AM
--- NOTE | 2017-05-18 11:37 | DIAGNOSTIC IMAGING REPORT ---
CERVICAL SPINE CT CT DOSE: HISTORY: neck pain TECHNIQUE: Multiaxial CT images of the cervical spine were performed and reformatted in the sagittal and coronal plane without the use of contrast. A dose lowering technique was utilized adhering to the principles of ALARA. COMPARISON: Cervical spine CT 03/22/2015. FINDINGS: Straightening of the cervical spine. No fracture or subluxation. Prevertebral soft tissues and the C1-C2 interval are intact. Mild to moderate disc space narrowing at C3-C4 and C4-C5. Moderate to space narrowing at C5-C6 and C6-C7 with endplate osteophytes. IMPRESSION: 1. No fracture or subluxation within the cervical spine. 2. Multilevel degenerative disc disease which is not significantly changed. Electronically signed by: Roby Velázquez M.D. 05/18/2017 11:36 AM Dictated Date/Time: 05/18/2017 11:32 AM
--- NOTE | 2017-05-18 12:01 | EMERGENCY ROOM VISIT NOTE ---
History Report prepared by Estela: Neil Fernandez Under the Supervision of: Dr. Bran Vidal D.O. First contact with patient: 08:55 Stated Complaint: HEADACHE History of Present Illness The patient is a 71 year old female who presents to the Emergency Room with complaints of "unbearable" pain in her neck, head, and stomach. Per the patient' s , he found the patient lying on the floor when he got home from work yesterday secondary to her pain. The patient continued to complain of the pain in her stomach and head, and also added that she has been weak recently. The notes that she has been experiencing diarrhea, and has been having headaches chronically for the past 1.5 years. Her headache worsened significantly at 1400 yesterday 19 hours ago. The patient notes that she cannot take many pain mediations as she is allergic to acetaminophen and other similar drugs. The expressed multiple times that these are chronic issues that have been worsening for some time. She was in the Emergency Department in January of last year and was admitted for dehydration and headaches. 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 A total of 10 systems reviewed and were otherwise negative. Past Medical & Surgical Medical Problems: (1) HTN (hypertension) Family History FH: [place] (myocardial infarction) FATHER FH: throat cancer MOTHER Social History Smoking Status: Never Smoker Alcohol Use: none Marital Status: Housing Status: lives with family Current/Historical Medications Scheduled Amlodipine (Norvasc), 10 MG PO DAILY Scheduled PRN Acetaminophen/Codeine (Tylenol W/Codeine #3), 1-2 TAB PO Q4H PRN for Pain Lorazepam (Lorazepam), 2 MG PO HS PRN for Sleep Allergies Coded Allergies: Brompheniramine (Verified Allergy, Unknown, UNKNOWN, 05/18/17) Buspirone (Verified Allergy, Unknown, UNKNOWN, 05/18/17) Chlorzoxazone (Verified Allergy, Unknown, U NKNOWN, 05/18/17) Diphenhydramine (Verified Allergy, Unknown, UNKNOWN, 05/18/17) Famotidine (Verified Allergy, Unknown, UNKNOWN, 05/18/17) Gluten (Unverified Allergy, Unknown, unknown, 05/18/17) Ibuprofen (Unverified Allergy, Unknown, hives, 05/18/17) Meperidine (Verified Allergy, Unknown, ., 05/18/17) Penicillins (Unverified Allergy, Unknown, 05/18/17) Phenylpropanolamine (Verified Allergy, Unknown, UNKNOWN, 05/18/17) Sulfa Drugs (Unverified Allergy, Unknown, 05/18/17) Thiopental (Verified Allergy, Unknown, ., 05/18/17) Metoprolol (Verified Adverse Reaction, Intermediate, SUDDEN SEVERE MOOD CHANGES, 05/18/17) Prednisone (Verified Adverse Reaction, Mild, o, 05/18/17) increased iop Acetaminophen (Verified Adverse Reaction, Unknown, 0, 05/18/17) as per [facility] records Oxycodone (Verified Adverse Reaction, Unknown, 0, 05/18/17) as per [facility] records Uncoded Allergies: IMPERIUM 3 (Allergy, Unknown, UNKNOWN, 04/29/13) Physical Exam Vital Signs Date Time Temp Pulse Resp B/P (MAP) Pulse Ox O2 Delivery O2 Flow Rate FiO2 05/18/17 12:36 71 16 151/90 96 05/18/17 12:23 71 16 130/101 96 Room Air 05/18/17 11:37 73 16 143/85 95 Room Air 05/18/17 10:20 92 14 161/87 96 Room Air 05/18/17 08:58 36.4 89 20 173/98 96 Room Air Physical Exam CONSTITUTIONAL/VITAL SIGNS: Reviewed / noted above. GENERAL: Non-toxic in appearance. INTEGUMENTARY: Warm, dry, and [place]. HEAD: Normocephalic. EYES: without scleral icterus or trauma. ENT/OROPHARYNX: clear and moist. LYMPHADENOPATHY/NECK: Is supple without lymphadenopathy or meningismus. Patient notes discomfort in the posterior neck when raising her head. RESPIRATORY: Lungs clear and equal. CARDIOVASCULAR: Regular rate and rhythm. GI/ABDOMEN: Soft and nontender. No organomegaly or pulsatile mass. No rebound or guarding. Normal bowel sounds. EXTREMITIES: Warm and well perfused. BACK: No CVA tenderness. NEUROLOGICAL: Intact without focal deficits. PSYCHIATRIC: normal affect. MUSCULOSKELETAL: Normally developed with good muscle tone. Medical Decision & Procedures ER Provider Diagnostic Interpretation: Radiology results as stated below per my review and radiologist interpretation: CERVICAL SPINE CT CT DOSE: HISTORY: neck pain TECHNIQUE: Multiaxial CT images of the cervical spine were performed and reformatted in the sagittal and coronal plane without the use of contrast. A dose lowering technique was utilized adhering to the principles of ALARA. COMPARISON: Cervical spine CT 03/22/2015. FINDINGS: Straightening of the cervical spine. No fracture or subluxation. Prevertebral soft tissues and the C1-C2 interval are intact. Mild to moderate disc space narrowing at C3-C4 and C4-C5. Moderate to space narrowing at C5-C6 and C6-C7 with endplate osteophytes. IMPRESSION: 1. No fracture or subluxation within the cervical spine. 2. Multilevel degenerative disc disease which is not significantly changed. Electronically signed by: Roby Velázquez M.D. 05/18/2017 11:36 AM Dictated Date/Time: 05/18/2017 11:32 AM CHEST ONE VIEW PORTABLE CLINICAL HISTORY: EVALUATE ALTERED MENTAL STATUS/WEAKNESS COMPARISON STUDY: 06/17/2016 FINDINGS: The bones soft tissues and hemidiaphragms are normal. The cardiomediastinal silhouette is normal. The lungs are clear. The pulmonary vasculature is normal. IMPRESSION: Negative chest. The above report was generated using voice recognition software. It may contain grammatical, syntax or spelling errors. Electronically signed by: Jong Lopez M.D. 05/18/2017 10:36 AM Dictated Date/Time: 05/18/2017 10:34 AM HEAD WITHOUT CONTRAST (CT) CT DOSE: 898.71 mGy.cm HISTORY: Altered mental status EVALUATE ALTERED MENTAL STATUS/WEAKNESS TECHNIQUE: Multiaxial CT images of the head were performed without the use of intravenous contrast. A dose lowering technique was utilized adhering to the principles of ALARA. Comparison: 06/17/2016 Findings: The paranasal sinuses and mastoid air cells are clear. The calvarium and skull base are intact. The ventricles and sulci are within normal limits. There is no mass, hematoma, midline shift, or acute infarct. Impression: No acute intracranial abnormality. The above report was generated using voice recognition software. It may contain grammatical, syntax or spelling errors. Electronically signed by: Jong Lopez M.D. 05/18/2017 11:31 AM Dictated Date/Time: 05/18/2017 11:29 AM Laboratory Results 05/18/17 09:25 Red Blood Count 4.20, Mean Corpuscular Volume 97.1, Mean Corpuscular Hemoglobin 35.0, Mean Corpuscular Hemoglobin Concent 36.0, Mean Platelet Volume 8.6, Neutrophils (%) (Auto) 78.2, Lymphocytes (%) (Auto) 15.7, Monocytes (%) (Auto) 4.2, Eosinophils (%) (Auto) 1.3, Basophils (%) (Auto) 0.3, Neutrophils # (Auto) 5.60, Lymphocytes # (Auto) 1.12, Monocytes # (Auto) 0.30, Eosinophils # (Auto) 0.09, Basophils # (Auto) 0.02 05/18/17 09:25 Test 05/18/17 09:25 05/18/17 09:50 White Blood Count 7.15 K/uL (4.8-10.8) Red Blood Count 4.20 M/uL (4.2-5.4) Hemoglobin 14.7 g/dL (12.0-16.0) Hematocrit 40.8 % (37-47) Mean Corpuscular Volume 97.1 fL (80-100) Mean Corpuscular Hemoglobin 35.0 pg (25-34) Mean Corpuscular Hemoglobin Concent 36.0 g/dl (32-36) Platelet Count 369 K/uL (130-400) Mean Platelet Volume 8.6 fL (7.4-10.4) Neutrophils (%) (Auto) 78.2 % Lymphocytes (%) (Auto) 15.7 % Monocytes (%) (Auto) 4.2 % Eosinophils (%) (Auto) 1.3 % Basophils (%) (Auto) 0.3 % Neutrophils # (Auto) 5.60 K/uL (1.4-6.5) Lymphocytes # (Auto) 1.12 K/uL (1.2-3.4) Monocytes # (Auto) 0.30 K/uL (0.11-0.59) Eosinophils # (Auto) 0.09 K/uL (0-0.5) Basophils # (Auto) 0.02 K/uL (0-0.2) RDW Standard Deviation 44.2 fL (36.4-46.3) RDW Coefficient of Variation 12.6 % (11.5-14.5) Immature Granulocyte % (Auto) 0.3 % Immature Granulocyte # (Auto) 0.02 K/uL (0.00-0.02) Prothrombin Time 10.0 SECONDS (9.0-12.0) Prothromb Time International Ratio 1.0 (0.9-1.1) Activated Partial Thromboplast Time 26.7 SECONDS (21.0-31.0) Partial Thromboplastin Ratio 1.0 Anion Gap 7.0 mmol/L (3-11) Est Creatinine Clear Calc Drug Dose 43.8 ml/min Estimated GFR () 86.0 Estimated GFR (Non- 74.2 BUN/Creatinine Ratio 14.0 (10-20) Calcium Level 9.4 mg/dl (8.5-10.1) Total Creatine Kinase 62 U/L (26-192) Creatine Kinase MB 0.6 ng/ml (0.5-3.6) Creatine Kinase MB Ratio 1.0 (0-3.0) Troponin I < 0.015 ng/ml (0-0.045) Lipase 147 U/L (73-393) Urine Color YELLOW Urine Appearance CLOUDY (CLEAR) Urine pH 8.0 (4.5-7.5) Urine Specific [place] 1.008 (1.000-1.030) Urine Protein NEG (NEG) Urine Glucose (UA) NEG (NEG) Urine Ketones TRACE (NEG) Urine Occult Blood NEG (NEG) Urine Nitrite NEG (NEG) Urine Bilirubin NEG (NEG) Urine Urobilinogen NEG (NEG) Urine Leukocyte Esterase NEG (NEG) Urine WBC (Auto) 1-5 /hpf (0-5) Urine RBC (Auto) 0-4 /hpf (0-4) Urine Hyaline Casts (Auto) 0 /lpf (0-5) Urine Epithelial Cells (Auto) 10-20 /lpf (0-5) Urine Bacteria (Auto) NEG (NEG) Laboratory results as stated above per my review. Medications Administered Medications (Trade) Dose Ordered Sig/Bella Route Start Time Stop Time Status Last Admin Dose Admin Sodium Chloride 1,000 ml @ 999 mls/hr Q1H1M STAT IV 05/18/17 09:09 05/18/17 10:09 DC 05/18/17 09:09 999 MLS/HR Morphine Sulfate (MoRPHine SULFATE INJ) 4 mg Q1H PRN IV 05/18/17 09:15 05/18/17 12:59 DC 05/18/17 10:44 4 MG Ondansetron HCl (Zofran Inj) 4 mg NOW STAT IV 05/18/17 09:09 05/18/17 09:13 DC 05/18/17 09:29 4 MG ECG Indication: abdominal pain Rate (beats per minute): 91 Rhythm: normal sinus Findings: other (No ST elevations or Depressions) Change: Patient's electrocardiogram interpreted by me. ED Course 0855: Previous medical records were reviewed. The patient was evaluated in room B4B. A complete history and physical examination was performed. 0909: Ordered Zofran 4 mg IV, Sodium Chloride 1000 mL @ 999 mL/hr IV. 0915: Ordered Morphine Sulfate 4 mg IV. 1205: I discussed the results and findings with the patient. She verbalized agreement of the treatment plan. The patient was discharged home. Medical Decision Differential includes: Acute intracranial bleed, trauma, meningitis, encephalitis, increased intracranial pressure, mass or mass effect, facial or dental infection, temporal arteritis, CVA, TIA, acute hypertensive emergency, sinusitis, carbon monoxide exposure. This is a 71-year-old female who presents to the ED with a chief complaint of posterior neck pain as well as a headache in the posterior aspect of the head. She feels shaky and nauseated as well as his experience and weakness and a stomachache. The patient is had diarrhea for the past several days. The reports that the patient has had neck and headache symptoms for more than a year. She has actually been admitted to the hospital for this in June and had MRIs of her spine and head. The patient reported that her symptoms started last night. The states that she has had headaches for years. The patient states that her posterior neck pain is worsened with looking upward and extending the neck. The patient's exam other than the discomfort with movement of the head, does not have any focal deficits. Pupils equal and reactive to light. Oropharynx is clear. There is no lymphadenopathy. There is no obvious swelling or redness or increased warmth to the posterior neck. The lungs are clear. Abdomen soft and nontender. Her vital signs are stable. Blood pressure is noted to be elevated. She does have a history of hypertension. The patient's CBC and complete metabolic panel were normal. Troponin was negative. Urine did not show infection. A CT scan of the cervical spine as well as head did not show acute process. Chest x-ray was negative for acute disease. The patient was told the results of the test. She was given IV fluids, IV morphine and IV the patient is felt to be stable for discharge and outpatient follow-up. Blood Pressure Screening Patient's blood pressure: Elevated blood pressure Blood pressure disposition: Referred to PCP Impression Primary Impression: Neck pain Additional Impression: Headache Scribe Attestation The scribe's documentation has been prepared under my direction and personally reviewed by me in its entirety. I confirm that the note above accurately reflects all work, treatment, procedures, and medical decision making performed by me. Departure Information Dispostion Home / Self-Care Referrals Guanakito Hough III, M.D. (PCP) Additional Instructions Follow-up with your doctor for further care and evaluation in 1-2 days. Return to the emergency department for worsening or new symptoms or any concerns. You have been examined and treated today on an emergency basis only. This is not a substitute for, or an effort to provide, complete comprehensive medical care. It is impossible to recognize and treat all injuries or illnesses in a single emergency department visit. It is therefore important that you follow up closely with your doctor. Call as soon as possible for an appointment. Problem Qualifiers
[2017-05-18 12:36] VITALS: BP 151/90; PULSE 71; O2SAT 96
== END 2017-05-18 12:37 | disposition home or self-care (01) ==
LOC: EDBD 08:46 → C.EDB 08:49
DX: R51 Headache (principal); M54.2 Cervicalgia; I10 Essential (primary) hypertension; Z82.49 Family history of ischemic heart disease and other diseases of the circulatory system; Z80.9 Family history of malignant neoplasm, unspecified; Z79.899 Other long term (current) drug therapy; Z88.2 Allergy status to sulfonamides; Z88.5 Allergy status to narcotic agent; Z88.1 Allergy status to other antibiotic agents; Z88.0 Allergy status to penicillin; Z88.8 Allergy status to other drugs, medicaments and biological substances

== ENCOUNTER 2018-08-26 13:09 | Inpatient (IN) ==
--- OUTSIDE RECORDS SUMMARY | 2018-08-26 13:12 | External Medical Summary | Continuity of Care Document ---
:1945 Author Name Barry Oleary Address Unavailable Unavailable , Care Team Providers Name Role Phone Unavailable Unavailable Unavailable ANDRES III, E Unavailable Unavailable Problems Active medical history not documented Allergies and Adverse Reactions Advil TABS (Allergy) Aspirin TABS (Allergy) Benadryl (Allergy) BuSpar TABS (Allergy) carisoprodol (Allergy) Celestone (Allergy) Chromagen TABS (Allergy) Demerol TABS (Allergy) Dimetapp Cold and Fever (Allergy) Diprivan (Allergy) Duratuss DM (Allergy) epinephrine (Allergy) Erythromycin Derivatives (Allergy) Halcion (Allergy) Lactated Ringers SOLN (Allergy) Lidocaine HCl SOLN (Allergy) medroxyPROGESTERone Acetate TABS (Allergy) Mivacron (Allergy) Motrin (Allergy) Norflex (Allergy) Parafon Forte DSC (Allergy) Penicillins (Allergy) Pepcid TABS (Allergy) RisperDAL TABS (Allergy) Sleepinal (Allergy) Sulfa Drugs (Allergy) Tobrex OINT (Allergy) trazodone (Allergy) Tylox (Allergy) Ultram (Allergy) Valium TABS (Allergy) Medications Ativan Anirudh MEDLEY Refills: 0 Procedures Procedures not documented Immunizations Immunizations not documented Plan of Treatment Planned Observations Planned Goals not documented Results No Known Results Results not documented
[2018-08-26 14:52] LABS: Basophils # (auto) 0.02 K/uL (0-0.2); Basophils % (auto) 0.3 %; Eosinophils # (auto) 0.05 K/uL (0-0.5); Eosinophils % (auto) 0.8 %; Hematocrit (blood only) 40.4 % (37-47); Immature Granulocytes # (auto) 0.01 K/uL (0.00-0.02); Immature Granulocytes % (auto) 0.2 %; Lymphocytes # (auto) 1.34 K/uL (1.2-3.4); Lymphocytes % (auto) 20.6 %; Mean Corpuscular Hgb Conc 34.7 g/dL (32-36); Mean Corpuscular Volume 93.1 fL (80-100); Mean Platelet Volume 9.2 fL (7.4-10.4); Monocytes # (auto) 0.47 K/uL (0.11-0.59); Monocytes % (auto) 7.2 %; Neutrophils # (auto) 4.63 K/uL (1.4-6.5); Neutrophils % (auto) 70.9 %; Platelet Count 300 K/uL (130-400); RDW Coefficient of Variation 11.6 % (11.5-14.5); RDW Standard Deviation 39.2 fL (36.4-46.3); Red Blood Count 4.34 M/uL (4.2-5.4); White Blood Count 6.52 K/uL (4.8-10.8)
[2018-08-26 15:02] LABS: Partial Thromboplastin Time 27.6 Seconds (21.0-31.0); Prothrombin Time 10.1 Seconds (9.0-12.0)
--- NOTE | 2018-08-26 15:11 | CT Scan Report ---
CT head/brain wo con CT DOSE: 537.48 mGy.cm HISTORY: Mental status change Stroke evaluation TECHNIQUE: Multiaxial CT images of the head were performed without the use of intravenous contrast. A dose lowering technique was utilized adhering to the principles of ALARA. Comparison: 12/23/2017 Findings: The paranasal sinuses and mastoid air cells are clear. Small subacute infarct anterior aspe ct right internal capsule. No evidence for acute intracranial hemorrhage. Ventricular system is midline. Impression: 1. Small subacute infarct right internal capsule. 2. No evidence for acute intracranial hemorrhage. The above report was generated using voice recognition software. It may contain grammatical, syntax or spelling errors. Electronically signed by: Jong Lopez M.D. 08/26/2018 3:09 PM
[2018-08-26] MEDS ORDERED: ASPIRIN CHEW 324 MG PO STA (15:15)
[2018-08-26] MEDS ORDERED: LABETALOL HCL IV 5 MG/ML 20ML IV PRN (15:15)
[2018-08-26 15:19] LABS: Albumin Level 3.9 gm/dl (3.4-5.0); BUN Creatinine Ratio 22.4 (10-20); Calcium 9.5 mg/dl (8.5-10.1); Creatinine Clr Calc Pharmacy 35.8 ml/min; Est GFR (African American) 67.6; Est GFR (Non-African American) 58.3; Magnesium 2.3 mg/dl (1.8-2.4); Potassium 3.9 mmol/L (3.5-5.1)
[2018-08-26 15:24] LABS: Albumin Globulin Ratio 1.1 (0.9-2); Bilirubin,Total 0.3 mg/dl (0.2-1); Globulin 3.7 gm/dl (2.5-4.0); Total Protein 7.6 gm/dl (6.4-8.2); Troponin I 0.025 ng/ml (0-0.045)
--- NOTE | 2018-08-26 17:08 | Emergency Department Note ---
Entered by Gabi Santana acting as a scribe for Selvin Deluca MD History of Present Illness General Chief complaint: Hypertension Time Seen by Provider: 08/26/18 13:41 Source: patient History of Present Illness Onset (ago): hour(s) 4 Location: head (Hypertension) Pain Consistency: + constant Maximum Pain Intensity: 5 Quality: + other (Hypertension) Associated symptoms: + other (Left facial droop, slurred speech, inability to sleep. ); no fever/chills Treatments prior to arrival: none The patient is a 72 year old white female with HTN, COPD, ovarian cyst, cervical disc disease and arthritis presenting to the Emergency Department complaining of constant hypertension starting 4 hours ago. The patient reports that she experienced a left sided facial droop and slurred speech 4 hours ago. She states that since then her facial droop has improved but her speech is still somewhat slurred. She notes that she stopped taking Lorazepam about 1 week ago and has not been able to sleep. She adds that she has been experiencing diarrhea. She states that she took no treatments for her symptoms REMARKETING REP. The patient denies fevers, chills, history of CVA, taking any blood thinners, alcohol use and tobacco use. Home Medications Home Medications Medication Instructions Recorded Confirmed Type acetaminophen-codeine 1.5 tab PO HS PRN 12/23/17 08/26/18 History melatonin 1.5 mg PO HS PRN 08/26/18 08/26/18 History mirtazapine 15 mg PO HS 08/26/18 08/26/18 History Allergies Allergy/AdvReac Type Severity Reaction Status Date / Time brompheniramine Allergy Unknown UNKNOWN Verified 08/26/18 14:51 buspirone Allergy Unknown UNKNOWN Verified 08/26/18 14:51 chlorzoxazone Allergy Unknown U NKNOWN Verified 08/26/18 14:51 diphenhydramine Allergy Unknown UNKNOWN Verified 08/26/18 14:51 famotidine Allergy Unknown UNKNOWN Verified 08/26/18 14:51 gluten Allergy Unknown unknown Unverified 08/26/18 14:51 ibuprofen Allergy Unknown hives Unverified 08/26/18 14:51 meperidine Allergy Unknown . Verified 08/26/18 14:51 Penicillins Allergy Unknown Unknown Verified 08/26/18 14:51 phenylpropanolamine Allergy Unknown UNKNOWN Verified 08/26/18 14:51 Sulfa (Sulfonamide Allergy Unknown Unknown Verified 08/26/18 14:51 Antibiotics) thiopental Allergy Unknown . Verified 08/26/18 14:51 metoprolol AdvReac Intermediate SUDDEN Verified 08/26/18 14:51 SEVERE MOOD CHANGES prednisone AdvReac Mild o Verified 08/26/18 14:51 oxycodone AdvReac Unknown 0 Verified 08/26/18 14:51 IMPERIUM 3 Allergy Unknown UNKNOWN Uncoded 08/26/18 14:51 Past Med/Surg History Medical History Arthritis COPD (chronic obstructive pulmonary disease) Cervical disc disease Chest pain Diarrhea Hypertension Ovarian cyst Surgical History Status post hysterectomy Status post tonsillectomy Family History Other No significant family history Social History Preferred Language: Luxembourgish Communication Ability: Effective Beliefs That Will Affect Care: None Current Living Situation: Spouse Feels Safe at Home: Yes Smoking Status: Former smoker Second Hand Exposure: No Hx Alcohol Use: No Hx Substance Use: No Review of Systems See HPI for pertinent positives & negatives. and A total of 10 systems reviewed and were otherwise negative Physical Exam Vital Signs Vital Signs - 24 hr 08/26/18 13:21 08/26/18 13:26 08/26/18 14:45 Temperature 37.3 C Temperature Source Oral Sepsis Recent Fever Within 48 Hours No Sepsis New/Unexplained Change in Mental Status No Sepsis Action Taken by Nursing No Action Required Pulse Rate 82 72 Pulse Rate [Finger] Pulse Rate from SpO2 Sensor Respiratory Rate 20 18 Respiratory Depth Normal Blood Pressure 202/116 H Blood Pressure [Right Arm] Blood Pressure Mean 144 Blood Pressure Mean [Right Arm] Pulse Oximetry 97 96 Oxygen Delivery Method Room Air Room Air 08/26/18 15:09 08/26/18 15:10 08/26/18 15:11 Temperature Temperature Source Sepsis Recent Fever Within 48 Hours Sepsis New/Unexplained Change in Mental Status Sepsis Action Taken by Nursing Pulse Rate 78 78 Pulse Rate [Finger] 79 Pulse Rate from SpO2 Sensor 76 Respiratory Rate 13 17 22 Respiratory Depth Blood Pressure 225/110 H Blood Pressure [Right Arm] 225/110 H Blood Pressure Mean 148 Blood Pressure Mean [Right Arm] 148 Pulse Oximetry 96 96 Oxygen Delivery Method Room Air 08/26/18 15:15 08/26/18 15:16 08/26/18 15:30 Temperature Temperature Source Sepsis Recent Fever Within 48 Hours Sepsis New/Unexplained Change in Mental Status Sepsis Action Taken by Nursing Pulse Rate 77 77 77 Pulse Rate [Finger] Pulse Rate from SpO2 Sensor 77 77 77 Respiratory Rate 17 19 19 Respiratory Depth Blood Pressure 186/126 H 192/111 H Blood Pressure [Right Arm] Blood Pressure Mean 146 138 Blood Pressure Mean [Right Arm] Pulse Oximetry 96 96 97 Oxygen Delivery Method 08/26/18 15:45 08/26/18 15:46 08/26/18 15:47 Temperature Temperature Source Sepsis Recent Fever Within 48 Hours Sepsis New/Unexplained Change in Mental Status Sepsis Action Taken by Nursing Pulse Rate 73 78 79 Pulse Rate [Finger] Pulse Rate from SpO2 Sensor 74 78 79 Respiratory Rate 19 21 19 Respiratory Depth Blood Pressure 190/113 H Blood Pressure [Right Arm] Blood Pressure Mean 138 Blood Pressure Mean [Right Arm] Pulse Oximetry 97 96 96 Oxygen Delivery Method 08/26/18 16:00 08/26/18 16:31 08/26/18 16:34 Temperature Temperature Source Sepsis Recent Fever Within 48 Hours Sepsis New/Unexplained Change in Mental Status Sepsis Action Taken by Nursing Pulse Rate 79 Pulse Rate [Finger] 81 Pulse Rate from SpO2 Sensor 80 Respiratory Rate 18 17 Respiratory Depth Blood Pressure 193/123 H Blood Pressure [Right Arm] 211/126 H Blood Pressure Mean 146 Blood Pressure Mean [Right Arm] 154 Pulse Oximetry 96 97 Oxygen Delivery Method Room Air 08/26/18 16:54 Temperature Temperature Source Sepsis Recent Fever Within 48 Hours Sepsis New/Unexplained Change in Mental Status Sepsis Action Taken by Nursing Pulse Rate Pulse Rate [Finger] 79 Pulse Rate from SpO2 Sensor Respiratory Rate 20 Respiratory Depth Normal Blood Pressure Blood Pressure [Right Arm] 186/114 H Blood Pressure Mean Blood Pressure Mean [Right Arm] 138 Pulse Oximetry 96 Oxygen Delivery Method Room Air GENERAL: Well appearing, well nourished, NAD, non-toxic. EYE EXAM: Normal conjunctiva. PERRL, no anisocoria and EOM's grossly intact w/o pain. OROPHARYNX: Moist mucus membranes. Grossly normal dentition. NECK: Supple, no nuchal rigidity, no adenopathy, non-tender. No signs of meningismus. LUNGS: Clear to auscultation. Normal chest wall mechanics. HEART: NSR, no MRG. ABDOMEN: Abdomen soft, non-tender, normo-active bowel sounds, no masses, no rebound or guarding. BACK: No CVA TTP. SKIN: No rashes and no bruising. UPPER EXTREMITIES: Upper extremities are grossly normal. LOWER EXTREMITIES: No pitting edema. No calf pain. NEURO EXAM: A&O x3, cranial nerves II-XII grossly intact w/ exception of difficulty w/ L sided grimace but able to open/close eyes, insufflate cheeks, and raise eyebrows, dysarthria noted, 5/5 strength throughout, no sensory deficits, good finger to nose, no pronator drift, moves all 4 extremities on command w/o issue. Course 1346: The patient was evaluated in room B12B, and a complete history and physical examination were performed. 1539: I discussed the patients case with Sharon Brantley PA-C. Dr. Sivakumar Tompkins hospitalist will evaluate the patient for further management. 1607: The patient was refusing Aspirin and Labetalol at this time. Consultations Consultation #1: I discussed the patients case with Sharon Brantley PA-C. Dr. Sivakumar Tompkins hospitalist will evaluate the patient for further management. Time: 15:39 Administered Medications Discontinued Medications Aspirin (Aspirin) 324 mg PO NOW STA Stop: 08/26/18 15:16 Last Admin: 08/26/18 15:36 Dose: Not Given Documented by: [id number] Medical Decision Making Differential Diagnosis Differential Diagnosis includes but is not limited to ischemic Stroke, hemorrhagic stroke, bells palsy, mass, neoplasm, migraine headache, seizure, subarachnoid hemorrhage, TIA, and transient global amnesia. Medical Records Attestation: I reviewed the patient's medical records. Home Medications Current Medication List: was personally reviewed by me Laboratory Data Attestation: I reviewed the patient's lab results. Result diagrams: 08/26/18 14:32 08/26/18 14:32 Lab Results 08/26/18 08/26/18 08/26/18 Range/Units 14:32 14:32 14:32 WBC 6.52 (4.8-10.8) K/uL RBC 4.34 (4.2-5.4) M/uL Hgb 14.0 (12.0-16.0) g/dL Hct 40.4 (37-47) % MCV 93.1 (80-100) fL MCH 32.3 (25-34) pg MCHC 34.7 (32-36) g/dL RDW Std Deviation 39.2 (36.4-46.3) fL RDW Coeff of Krista 11.6 (11.5-14.5) % Plt Count 300 (130-400) K/uL MPV 9.2 (7.4-10.4) fL Immature Gran % (Auto) 0.2 % Neut % (Auto) 70.9 % Lymph % (Auto) 20.6 % Dade % (Auto) 7.2 % Eos % (Auto) 0.8 % Baso % (Auto) 0.3 % Immature Gran # (Auto) 0.01 (0.00-0.02) K/uL Neut # (Auto) 4.63 (1.4-6.5) K/uL Lymph # (Auto) 1.34 (1.2-3.4) K/uL Dade # (Auto) 0.47 (0.11-0.59) K/uL Eos # (Auto) 0.05 (0-0.5) K/uL Baso # (Auto) 0.02 (0-0.2) K/uL PT 10.1 (9.0-12.0) Seconds INR 1.0 (0.9-1.1) APTT 27.6 (21.0-31.0) Seconds PTT Ratio 1.0 Sodium 143 (136-145) mmol/L Potassium 3.9 (3.5-5.1) mmol/L Chloride 109 H (98-107) mmol/L Carbon Dioxide 29 (21-32) mmol/L Anion Gap 6.0 (3-11) BUN 22 H (7-18) mg/dl Creatinine 0.97 (0.6-1.2) mg/dl Est Cr Clr Drug Dosing 35.8 ml/min Est GFR ( Amer) 67.6 Est GFR (Non-Af Amer) 58.3 BUN/Creatinine Ratio 22.4 H (10-20) Glucose 90 (70-99) mg/dl POC Glucose (70-99) Calcium 9.5 (8.5-10.1) mg/dl Magnesium 2.3 (1.8-2.4) mg/dl Total Bilirubin 0.3 (0.2-1) mg/dl AST 23 (15-37) U/L ALT 26 (12-78) U/L Alkaline Phosphatase 69 (45-117) U/L Troponin I 0.025 (0-0.045) ng/ml Total Protein 7.6 (6.4-8.2) gm/dl Albumin 3.9 (3.4-5.0) gm/dl Globulin 3.7 (2.5-4.0) gm/dl Albumin/Globulin Ratio 1.1 (0.9-2) 08/26/18 Range/Units 14:52 WBC (4.8-10.8) K/uL RBC (4.2-5.4) M/uL Hgb (12.0-16.0) g/dL Hct (37-47) % MCV (80-100) fL MCH (25-34) pg MCHC (32-36) g/dL RDW Std Deviation (36.4-46.3) fL RDW Coeff of Krista (11.5-14.5) % Plt Count (130-400) K/uL MPV (7.4-10.4) fL Immature Gran % (Auto) % Neut % (Auto) % Lymph % (Auto) % Dade % (Auto) % Eos % (Auto) % Baso % (Auto) % Immature Gran # (Auto) (0.00-0.02) K/uL Neut # (Auto) (1.4-6.5) K/uL Lymph # (Auto) (1.2-3.4) K/uL Dade # (Auto) (0.11-0.59) K/uL Eos # (Auto) (0-0.5) K/uL Baso # (Auto) (0-0.2) K/uL PT (9.0-12.0) Seconds INR (0.9-1.1) APTT (21.0-31.0) Seconds PTT Ratio Sodium (136-145) mmol/L Potassium (3.5-5.1) mmol/L Chloride (98-107) mmol/L Carbon Dioxide (21-32) mmol/L Anion Gap (3-11) BUN (7-18) mg/dl Creatinine (0.6-1.2) mg/dl Est Cr Clr Drug Dosing ml/min Est GFR ( Amer) Est GFR (Non-Af Amer) BUN/Creatinine Ratio (10-20) Glucose (70-99) mg/dl POC Glucose 88 (70-99) Calcium (8.5-10.1) mg/dl Magnesium (1.8-2.4) mg/dl Total Bilirubin (0.2-1) mg/dl AST (15-37) U/L ALT (12-78) U/L Alkaline Phosphatase (45-117) U/L Troponin I (0-0.045) ng/ml Total Protein (6.4-8.2) gm/dl Albumin (3.4-5.0) gm/dl Globulin (2.5-4.0) gm/dl Albumin/Globulin Ratio (0.9-2) Imaging Data Radiologist's Impression: Radiology results as stated below per my review and t he radiologist's interpretation: CT head/brain wo con CT DOSE: 537.48 mGy.cm HISTORY: Mental status change Stroke evaluation TECHNIQUE: Multiaxial CT images of the head were performed without the use of intravenous contrast. A dose lowering technique was utilized adhering to the principles of ALARA. Comparison: 12/23/2017 Findings: The paranasal sinuses and mastoid air cells are clear. Small subacute infarct anterior aspect right internal capsule. No evidence for acute intracranial hemorrhage. Ventricular system is midline. Impression: 1. Small subacute infarct right internal capsule. 2. No evidence for acute intracranial hemorrhage. The above report was generated using voice recognition software. It may contain grammatical, syntax or spelling errors. Electronically signed by: Jong Lopez M.D. 08/26/2018 3:09 PM ECG Data Attestation: I personally reviewed and interpreted this ECG as follows: Indication: weakness Rate (beats per minute): 72 Rhythm: normal sinus Findings: + other (Normal axis. Normal interval.) and + T-wave inversion (Lead 3) Blood Pressure Blood Pressure Findings: Elevated blood pressure Blood Pressure Disposition: further management by hospitalist JOB Vivas The patient is a 72 year old white female with HTN, COPD, ovarian cyst, cervical disc disease and arthritis presenting to the Emergency Department complaining of constant hypertension starting 4 hours ago. Patient was seen and evaluated the bedside. The patient reportedly had been having some slurred speech as well as some questionable facial droop. On exam the patient does have some slurred speech and did have some difficulty with grimace. The patient is able to close and open her eyes without difficulty insufflate the cheeks as well as raise the left eyebrow. The patient did a blood work completed along with a CT the brain. Given that her NIH was may be a 1 I do not believe that she would be a great TPA candidate. Especially given the fact that after reassessment her dysarthria seem to improve on its own. The patient had a relatively unremarkable blood work. EKG does not show any arrhythmia. The patient fairly normal kidney function. Patient CT did show concern for a subacute right internal capsule infarct. No ICH. Also another reason why the patient likely not be a TPA candidate as the patient has already infarcted the area. This likely did occur not within the last 3 to 4 hours. The patient was counseled on aspirin and antihypertensives in order to keep the patient's SBP below 220. The patient refused the aspirin to the antihypertensives. After further discussion the patient was willing to stay in the hospital. MR of the brain was ordered. The patient was told that she would need further discussion about antihypertensives and antiplatelet therapy for stroke prevention. I did speak the on-call hospitalist agreed to further evaluate treat the patient. Patient was admitted to the medicine service. Impression & Plan CVA (cerebral vascular accident), Slurred speech, HTN (hypertension), Facial droop Discharge Plan Visit Data Chief Complaint: Hypertension ED Provider: Selvin Deluca Discharge Problem: CVA (cerebral vascular accident), Slurred speech, HTN (hypertension), Facial droop Patient Disposition: Being Evaluated by Hospitalist Forms Stand Alone Forms: My [facility] [employer] Prescriptions Prescriptions: No Action acetaminophen-codeine 300-30 mg Tablet 1.5 tab PO HS PRN (Reason: Pain) RF: 0 mirtazapine 15 mg tablet 15 mg PO HS RF: 0 melatonin 3 mg Tablet 1.5 mg PO HS PRN (Reason: Sleep) RF: 0 Referrals Referrals: Henyr Solo MD [Primary Care Provider] - Discharge Problem: CVA (cerebral vascular accident) Qualifiers: CVA mechanism: unspecified Qualified Code(s): I63.9 - Cerebral infarction, unspecified HTN (hypertension) Qualifiers: Hypertension type: unspecified Qualified Code(s): I10 - Essential (primary) hypertension The scribe's documentation has been prepared under my direction and personally reviewed by me in its entirety. I confirm that the note above accurately reflects all work, treatment, procedures, and medical decision making performed by me.
[2018-08-26] MEDS ORDERED: ACETAMINOPHEN 1,000 MG/100 ML VIAL IV STA (17:38)
[2018-08-26] MEDS ORDERED: ACETAMINOPHEN 1000 MG/100 ML IV IV ONE (17:51)
[2018-08-26] MEDS ORDERED: ASPIRIN CHEW 324 MG ONE (17:51)
[2018-08-26] MEDS ORDERED: HydrALAZINE HCL 20 MG/ML VIAL IV STA ×2 (17:57)
[2018-08-26] MEDS ORDERED: NITROGLYCERIN 2% OINTMENT 30GM TUBE EXT STA ×2 (17:58)
--- NOTE | 2018-08-26 18:07 | History & Physical Report ---
Date of Service August 26, 2018 Assessment & Plan (1) CVA (cerebral vascular accident): Pt presented to ER with c/o L facial droop and slurred speech started around 11AM today. Also c/o PERES In ER patient afebrile, peak: 82, RR: 20, BP 202/116, 96% on room air. No leukocytosis or significant electrolyte abnormality. Troponin: 0.025, EKG sinus rhythm no acute ST changes CT head: Small subacute infarct right internal capsule. No evidence for acute intracranial hemorrhage. In ER pt with resolution of slurred speech and no other focal deficits noted. Pt refused aspirin initially and refused labetalol. -Tele to monitor for arrhythmias -Trend troponin -Lipids, HA1C, TSH in am -MRI brain -U/S carotids -echo with bubble study -aspiration precautions -PT/OT consult -statin, ASA -Hydralazine, nitro paste prn SBP>160 -neurology consult (2) HTN (hypertension): Patient with h/o HTN. Reported history numerous medication intolerances including labetalol causing nausea and joint pain, amlodipine causing gingival overgrowth, diuretics causing dehydration. Patient has been off of BP medications for 6 months In ER patient hypertensive with BP as high as 238/139. Patient refused labetalol in ER -Hydralazine 5 mg IV and 0.5 inch Nitropaste applied -Hydralazine, Nitropaste SBP > 160 -Monitor BP (3) Anxiety: (4) Depression: Patient has been off of Ativan for 2 months, was weaned by PCP. Follows with outpatient psychology. History of insomnia -Continue mirtazapine at bedtime (5) Degenerative joint disease of cervical spine: Currently being weaned off Tylenol with codeine and is down to 1.5 tab daily at bedtime -Continue Tylenol with codeine DVT Prophylaxis -Lovenox SQ Full Code as per discussion with pt Follows with Dr Solo for routine care Pt was seen with Dr Shaver. See addendum History of Present Illness Chief Complaint: Slurred speech Primary Care Provider: Henry Solo MD Pt is 72 y/o F with PMH HTN, anxiety, depression, degenerative disc disease presented to ER with complaint of slurred speech. Patient states this morning approximately 11 AM left side of her face and felt like it was "pulling" or drooping and felt like had some drooling. At approximately 11:45 AM patient's returned home and noted that patient with some slurred speech. Denies any noted extremity weakness or paresthesias. Patient states then started with headache. Reports noticing some improvement of left facial droop and slurred speech since arrival to ER. Currently patient complaining of headache and some nausea. She reports that she is on a very regimented meal schedule and she mis sed her dinnertime. Denies fever/chills, diaphoresis, V/D/C, dizziness, syncope, vision changes, neck pain, CP, SOB, orthopnea, palpitations, cough, sore throat, choking, otalgia, rhinorrhea, abdominal pain, paresthesias, extremity weakness, extremity edema, rashes, urinary symptoms. Patient reports was on 2 mg of Ativan which she has been weaned off and last use approximately 2 months ago. Also reports was on Tylenol with codeine and has been weaning off of that and is now down to 1-1/2 tablets at bedtime which was changed this week from 2 tablets daily. Patient states upon this medication change she had insomnia the following day and yesterday she was prescribed trazodone however she has not started taking that yet as her sleep had improved. Patient reports chronic history of insomnia and is following with out patient psychology and has had improvement of insomnia problems. Pt reports past couple months following with Dr Solo and have been able to make these progressive med discontinuations. Reports has been off BP meds for 8 months secondary to many med side effects and states that her BP had improved. Patient with lengthily outpatient list of medication intolerances. Reports unable to tolerate full aspirin has causes GI upset and headache, however able to tolerate baby aspirin. Reports labetalol causes nausea and joint pain. States amlodipine caused gingival over growth, and diuretics cause dehydration. In ER patient afebrile, pulse 82, BP 202/116 up to 225/110, oxygen sats 98% on room air. CT head: Small subacute infarct right internal capsule, no intracra nial hemorrhage. In ER reported that no noted facial drooping and improvement of slurred speech. In ER patient was prescribed aspirin and labetalol however patient refused. Allergies Allergy/AdvReac Type Severity Reaction Status Date / Time brompheniramine Allergy Unknown UNKNOWN Verified 08/26/18 14:51 buspirone Allergy Unknown UNKNOWN Verified 08/26/18 14:51 chlorzoxazone Allergy Unknown U NKNOWN Verified 08/26/18 14:51 diphenhydramine Allergy Unknown UNKNOWN Verified 08/26/18 14:51 famotidine Allergy Unknown UNKNOWN Verified 08/26/18 14:51 gluten Allergy Unknown unknown Unverified 08/26/18 14:51 ibuprofen Allergy Unknown hives Unverified 08/26/18 14:51 meperidine Allergy Unknown . Verified 08/26/18 14:51 Penicillins Allergy Unknown hives Verified 08/26/18 18:05 phenylpropanolamine Allergy Unknown UNKNOWN Verified 08/26/18 14:51 Sulfa (Sulfonamide Allergy Unknown Unknown Verified 08/26/18 14:51 Antibiotics) thiopental Allergy Unknown . Verified 08/26/18 14:51 metoprolol AdvReac Intermediate SUDDEN Verified 08/26/18 14:51 SEVERE MOOD CHANGES prednisone AdvReac Mild o Verified 08/26/18 14:51 oxycodone AdvReac Unknown 0 Verified 08/26/18 14:51 IMPERIUM 3 Allergy Unknown UNKNOWN Uncoded 08/26/18 14:51 Home Medications Home Medications Medication Instructions Recorded Confirmed Type acetaminophen-codeine 1.5 tab PO HS PRN 12/23/17 08/26/18 History melatonin 1.5 mg PO HS PRN 08/26/18 08/26/18 History mirtazapine 15 mg PO HS 08/26/18 08/26/18 History aspirin [Ecotrin Low Strength] 81 mg PO DAILY@0700 30 Days #30 tab 08/28/18 Rx clopidogrel 75 mg PO QAM 21 Days #21 tab 08/28/18 Rx atorvastatin 20 mg PO QAM 30 Days #30 tab 08/29/18 Rx hydralazine 25 mg PO BID 30 Days #60 tab 08/29/18 Rx Past Med/Surg History Medical History Arthritis (Chronic) Degenerative joint disease of cervical spine (Chronic) Depression (Chronic) Anxiety (Chronic) HTN (hypertension) (Chronic) COPD (chronic obstructive pulmonary disease) Cervical disc disease Chest pain Hypertension Ovarian cyst Surgical History Status post hysterectomy Status post tonsillectomy Family History Father Coronary heart disease Mother Breast cancer Social History Preferred Language: Ukrainian Communication Ability: Effective Candy Dipper Required: No Beliefs That Will Affect Care: None Current Living Situation: Spouse Other Information That Helps Us Care for You: No Feels Safe at Home: Yes Safety Concerns: Feels Safe At This Time Smoking Status: Former smoker Second Hand Exposure: No Tobacco Cessation Education Requested by Patient: No Hx Alcohol Use: No Hx Substance Use: Yes substance use type: sedatives, opiates and prescription drug Review of Systems Review of Systems: All systems reviewed & are unremarkable except as noted in HPI & below Physical Exam Physical Exam: General: no acute distress, WDWN Head: normocephalic, atraumatic Eyes: PERRL, EOM's intact, conjunctiva non-injected, anicteric ENT: normal inspection external ears, nose, mucous membranes moist Neck: supple, trachea midline, non-tender Lungs: clear, no respiratory distress, no wheezing/rhonchi/rales CV: RRR, no murmur, no JVD, no pretibial edema Abd: normal BS, soft, non-tender Ext: no cyanosis, no calf tenderness Neuro: A&O x 3, no slurred speech, no facial droop, symmetric eyebrow raise, able to smile and frown with no abnormality, normal finger to nose, no pronator drift, strength 5/5 bilateral upper and lower extremities, sensation to light touch intact, slightly anxious Skin: warm, dry Results & Data Vital Signs (Past 12 Hours) Vital Signs Temp Pulse Pulse Resp BP BP Pulse Ox 08/26/18 17:15 79 18 203/107 H 08/26/18 16:54 79 20 186/114 H 96 08/26/18 16:34 211/126 H 08/26/18 16:31 81 17 97 08/26/18 16:00 79 18 193/123 H 96 08/26/18 15:47 79 19 96 08/26/18 15:46 78 21 190/113 H 96 08/26/18 15:45 73 19 97 08/26/18 15:30 77 19 192/111 H 97 08/26/18 15:16 77 19 186/126 H 96 08/26/18 15:15 77 17 96 08/26/18 15:11 78 22 225/110 H 96 08/26/18 15:10 79 17 225/110 H 96 08/26/18 15:09 78 13 08/26/18 14:45 72 18 08/26/18 13:26 37.3 C 82 20 202/116 H 96 08/26/18 13:21 97 Laboratory Results Short CBC 08/26/18 Range/Units 14:32 WBC 6.52 (4.8-10.8) K/uL Hgb 14.0 (12.0-16.0) g/dL Hct 40.4 (37-47) % Plt Count 300 (130-400) K/uL BMP 08/26/18 14:32 Sodium 143 Potassium 3.9 Chloride 109 H Carbon Dioxide 29 BUN 22 H Creatinine 0.97 Glucose 90 Calcium 9.5 Cardiac Enzymes 08/26/18 Range/Units 14:32 Troponin I 0.025 (0-0.045) ng/ml Liver Function 08/26/18 Range/Units 14:32 Total Bilirubin 0.3 (0.2-1) mg/dl AST 23 (15-37) U/L ALT 26 (12-78) U/L Alkaline Phosphatase 69 (45-117) U/L Albumin 3.9 (3.4-5.0) gm/dl Diagnostic Findings CT HEAD: Impression: 1. Small subacute infarct right internal capsule. 2. No evidence for acute intracranial hemorrhage. ECG Rate (beats per minute): 72 Rhythm: normal sinus Supervising Physician Co-Signing Physician Notes Attending addendum The patient was seen and examined on the day of admission Pt is 72 y/o F with PMH HTN, anxiety, depression, degenerative disc disease presented to ER with complaint of slurred speech. Patient states this morning approximately 11 AM left side of her face and felt like it was "pulling" or drooping and felt like had some drooling. She was admitted with strokelike symptoms and possible stroke She was hemodynamically stable during the examination Her admission labs and imaging studies reviewed Neurology consultation requested Acute this plan as outlined above by EMY Martinez Dr (1) HTN (hypertension) Hypertension type: unspecified Qualified Code(s): I10 - Essential (primary) hypertension (2) CVA (cerebral vascular accident) CVA mechanism: unspecified Qualified Code(s): I63.9 - Cerebral infarction, unspecified
[2018-08-26] MEDS ORDERED: HydrALAZINE HCL 20 MG/ML VIAL ONE (18:16)
[2018-08-26] MEDS ORDERED: NITROGLYCERIN 2% OINTMENT 30GM TUBE ONE (18:17)
[2018-08-26] MEDS ORDERED: ACETAMINOPHEN 325 MG TAB PO PRN (19:44)
[2018-08-26] MEDS ORDERED: NITROGLYCERIN 2% OINTMENT 30GM TUBE EXT PRN (19:44)
[2018-08-26] MEDS ORDERED: PHARMACIST DISCHARGE MED REC CONSULT PRN (19:44)
[2018-08-26] MEDS ORDERED: MELATONIN 1.5 MG PO PRN (19:44)
[2018-08-26] MEDS ORDERED: ACETAMINOPHEN W/CODEINE #3 1 TAB PO PRN ×2 (21:28→21:29)
[2018-08-26] MEDS ORDERED: MELATONIN PO PRN (21:49)
[2018-08-26] MEDS: MIRTAZAPINE 15 MG PO SCH (21:52)
[2018-08-26] MEDS: MELATONIN PO PRN (22:48)
[2018-08-26] MEDS: ENOXAPARIN INJ 40 MG/0.4 ML SYR SQ SCH (22:51)
--- NOTE | 2018-08-26 23:12 | Ultrasound Report ---
BILATERAL CAROTID DOPPLER STUDY HISTORY: stroke COMPARISON: Neck CTA 12/23/2017. TECHNIQUE: Real-time, grayscale, and color Doppler sonography of the carotid arteries was performed. Imaging reviewed in the transverse and longitudinal planes. All measurements were calculated based on NASCET criteria. FINDINGS: Antegrade flow is seen in the bilateral vertebral arteries. The brachial pressures were not obtained Mild calcified plaque within the bilateral carotid bulbs. The peak systolic velocity within the right ICA is 70 cm/s. The right systolic ratio is 1. The peak systolic velocity within the left ICA is 56 cm/s. The left systolic ratio is 0.8. IMPRESSION: No hemodynamically significant stenosis seen within the carotid arteries. Electronically signed by: Roby Velázquez M.D. 08/26/2018 11:11 PM
[2018-08-27 02:21] LABS: Basophils # (auto) 0.02 K/uL (0-0.2); Basophils % (auto) 0.3 %; Eosinophils # (auto) 0.08 K/uL (0-0.5); Eosinophils % (auto) 1.1 %; Hemoglobin 12.8 g/dL (12.0-16.0); Immature Granulocytes # (auto) 0.01 K/uL (0.00-0.02); Immature Granulocytes % (auto) 0.1 %; Lymphocytes # (auto) 2.21 K/uL (1.2-3.4); Lymphocytes % (auto) 29.9 %; Mean Corpuscular Hgb Conc 35.6 g/dL (32-36); Mean Corpuscular Volume 91.1 fL (80-100); Monocytes # (auto) 0.63 K/uL (0.11-0.59); Monocytes % (auto) 8.5 %; Neutrophils # (auto) 4.43 K/uL (1.4-6.5); Neutrophils % (auto) 60.1 %; Platelet Count 302 K/uL (130-400); RDW Coefficient of Variation 11.5 % (11.5-14.5); RDW Standard Deviation 38.8 fL (36.4-46.3); Red Blood Count 3.95 M/uL (4.2-5.4); White Blood Count 7.38 K/uL (4.8-10.8)
[2018-08-27 02:39] LABS: BUN Creatinine Ratio 26.1 (10-20); Calcium 8.5 mg/dl (8.5-10.1); Creatinine Clr Calc Pharmacy 39.4 ml/min; Est GFR (African American) 76.1; Est GFR (Non-African American) 65.6; Potassium 3.4 mmol/L (3.5-5.1)
[2018-08-27 02:59] LABS: Troponin I 0.128 ng/ml (0-0.045)
[2018-08-27] MEDS: ASPIRIN 81 MG ECTAB PO SCH (06:05)
[2018-08-27 08:41] LABS: Estimated Average Glucose 103 mg/dl; Hemoglobin A1C 5.2 % (4.5-5.6)
[2018-08-27] MEDS: CLOPIDOGREL BISULFATE 75 MG TAB PO SCH (11:48)
--- NOTE | 2018-08-27 15:24 | Hospitalist Progress Note ---
Date of Service August 27, 2018 Assessment & Plan (1) CVA (cerebral vascular accident): Pt presented to ER with c/o L facial droop and slurred speech started around 11AM today. Also c/o PERES In ER patient afebrile, peak: 82, RR: 20, BP 202/116, 96% on room air. No leukocytosis or significant electrolyte abnormality. Troponin: 0.025, EKG sinus rhythm no acute ST changes CT head: Small subacute infarct right internal capsule. No evidence for acute intracranial hemorrhage. In ER pt with resolution of slurred speech and no other focal deficits noted. Pt refused aspirin initially and refused labetalol. - echo: ef >70%, grade 1 Diast dysfunction; no atrial septal defect Carotid US: negative troponin plateaud 0.14 o 0.16 - Neurology consulted ASA + Plavix started - BP systolic 150s now - neuro symptoms resolved - PT/OT /ST ordered monitor (2) HTN (hypertension): Patient with h/o HTN. Reported history numerous medication intolerances including labetalol causing nausea and joint pain, amlodipine causing gingival overgrowth, diuretics causing dehydration. Patient has been off of BP medications for 6 months In ER patient hypertensive with BP as high as 238/139. Patient refused labetalol in ER - BP in the systolic 150s continue to monitor - goal BP 140-160 (3) Anxiety: (4) Depression: Patient has been off of Ativan for 2 months, was weaned by PCP. Follows with outpatient psychology. History of insomnia -Continue mirtazapine at bedtime (5) Degenerative joint disease of cervical spine: Currently being weaned off Tylenol with codeine and is down to 1.5 tab daily at bedtime -Continue Tylenol with codeine DVT Prophylaxis -Lovenox SQ Full Code as per discussion with pt Follows with Dr Solo for routine care Subjective ff up for acute cva seen resting in chair, comfortable in good spirits states she feels better today left facial numbness almost resolved speech is almost back to baseline denies other symptoms Review of Systems Review of Systems: All systems reviewed & are unremarkable except as noted in HPI & below Physical Exam Physical Exam: General- oriented x 3, not in distress, speaks in sentences with no effort or accessory muscle use Head- atraumatic Eyes- PERRL, EOMI, anicteric ENT- oropharynx clear Neck- supple, no JVD, no adenopathy, no thyromegaly; carotids +2/2, no bruits ap preciated Lungs- clear to auscultation bilaterally, no rales/wheezes Heart- normal rate, regular rhythm; no murmur, no gallop, no rub appreciated Abdomen- normal bowel sounds, nondistended, soft, nontender, no masses or hepatosplenomegaly Extremities- no pretibial edema, no calf tenderness; peripheral pulses intact Neuro- alert, oriented x 3; CN 2-12 grossly intact; motor 5/5 bilaterally;sen sation 100% on all extremities; no other gross focal neurologic deficits Skin- warm & dry Results & Data Vital Signs (Past 12 Hours) Vital Signs Temp Pulse Pulse Resp BP BP Pulse Ox 08/27/18 15:21 71 08/27/18 15:02 36.8 C 70 16 151/100 H 98 08/27/18 11:19 36.3 C L 71 17 158/94 H 95 08/27/18 08:00 60 08/27/18 07:42 36.7 C 64 17 152/86 H 93 08/27/18 04:00 36.9 C 69 17 132/69 94 Laboratory Results Laboratory Results - last 24 hr 08/26/18 08/27/18 08/27/18 20:31 01:48 01:48 WBC 7.38 RBC 3.95 L Hgb 12.8 Hct 36.0 L MCV 91.1 MCH 32.4 MCHC 35.6 RDW Std Deviation 38.8 RDW Coeff of Krista 11.5 Plt Count 302 MPV 9.0 Immature Gran % (Auto) 0.1 Neut % (Auto) 60.1 Lymph % (Auto) 29.9 [place] % (Auto) 8.5 Eos % (Auto) 1.1 Baso % (Auto) 0.3 Immature Gran # (Auto) 0.01 Neut # (Auto) 4.43 Lymph # (Auto) 2.21 [place] # (Auto) 0.63 H Eos # (Auto) 0.08 Baso # (Auto) 0.02 Sodium 141 Potassium 3.4 L Chloride 108 H Carbon Dioxide 28 Anion Gap 5.0 BUN 23 H Creatinine 0.88 Est Cr Clr Drug Dosing 39.4 Est GFR ( Amer) 76.1 Est GFR (Non-Af Amer) 65.6 BUN/Creatinine Ratio 26.1 H Glucose 90 Estimat Average Glucose Hemoglobin A1c Calcium 8.5 Troponin I 0.146 H* 0.128 H* Triglycerides 74 Cholesterol 208 H LDL Cholesterol, Calc 113 VLDL Cholesterol, Calc 15 HDL Cholesterol 80 Cholesterol/HDL Ratio 3 TSH 1.880 08/27/18 01:48 WBC RBC Hgb Hct MCV MCH MCHC RDW Std Deviation RDW Coeff of Krista Plt Count MPV Immature Gran % (Auto) Neut % (Auto) Lymph % (Auto) [place] % (Auto) Eos % (Auto) Baso % (Auto) Immature Gran # (Auto) Neut # (Auto) Lymph # (Auto) [place] # (Auto) Eos # (Auto) Baso # (Auto) Sodium Potassium Chloride Carbon Dioxide Anion Gap BUN Creatinine Est Cr Clr Drug Dosing Est GFR ( Amer) Est GFR (Non-Af Amer) BUN/Creatinine Ratio Glucose Estimat Average Glucose 103 Hemoglobin A1c 5.2 Calcium Troponin I Triglycerides Cholesterol LDL Cholesterol, Calc VLDL Cholesterol, Calc HDL Cholesterol Cholesterol/HDL Ratio TSH (1) HTN (hypertension) Hypertension type: unspecified Qualified Code(s): I10 - Essential (primary) hypertension (2) CVA (cerebral vascular accident) CVA mechanism: unspecified Qualified Code(s): I63.9 - Cerebral infarction, unspecified
[2018-08-27] MEDS: HydrALAZINE HCL 20 MG/ML VIAL IV PRN (19:57)
[2018-08-27] MEDS: MELATONIN PO PRN (21:07)
[2018-08-27] MEDS: ENOXAPARIN INJ 40 MG/0.4 ML SYR SQ SCH (21:08)
[2018-08-27] MEDS: MIRTAZAPINE 15 MG PO SCH (21:08)
[2018-08-27] MEDS: ACETAMINOPHEN W/CODEINE #3 1 TAB PO PRN (21:45)
[2018-08-28] MEDS ORDERED: CLOPIDOGREL BISULFATE 75MG Homepack PO SCH
[2018-08-28 05:57] LABS: Basophils # (auto) 0.02 K/uL (0-0.2); Basophils % (auto) 0.3 %; Eosinophils # (auto) 0.27 K/uL (0-0.5); Eosinophils % (auto) 4.2 %; Hematocrit (blood only) 38.1 % (37-47); Hemoglobin 13.1 g/dL (12.0-16.0); Immature Granulocytes # (auto) 0.01 K/uL (0.00-0.02); Immature Granulocytes % (auto) 0.2 %; Lymphocytes % (auto) 37.1 %; Mean Corpuscular Hgb Conc 34.4 g/dL (32-36); Mean Corpuscular Volume 93.6 fL (80-100); Mean Platelet Volume 9.2 fL (7.4-10.4); Monocytes # (auto) 0.69 K/uL (0.11-0.59); Monocytes % (auto) 10.7 %; Neutrophils # (auto) 3.08 K/uL (1.4-6.5); Neutrophils % (auto) 47.5 %; Platelet Count 277 K/uL (130-400); RDW Coefficient of Variation 11.7 % (11.5-14.5); RDW Standard Deviation 39.7 fL (36.4-46.3); Red Blood Count 4.07 M/uL (4.2-5.4); White Blood Count 6.47 K/uL (4.8-10.8)
[2018-08-28 06:36] LABS: BUN Creatinine Ratio 21.8 (10-20); Calcium 8.6 mg/dl (8.5-10.1); Creatinine Clr Calc Pharmacy 35.4 ml/min; Est GFR (African American) 66.8; Est GFR (Non-African American) 57.6; Potassium 3.9 mmol/L (3.5-5.1)
[2018-08-28] MEDS: ASPIRIN 81 MG ECTAB PO SCH (08:02)
[2018-08-28] MEDS: CLOPIDOGREL BISULFATE 75 MG TAB PO SCH (08:02)
[2018-08-28] MEDS: HydrALAZINE HCL 20 MG/ML VIAL IV PRN (08:05)
--- NOTE | 2018-08-28 09:15 | Hospitalist Progress Note ---
Date of Service August 28, 2018 Assessment & Plan (1) CVA (cerebral vascular accident): Pt presented to ER with c/o L facial droop and slurred speech started around 11AM today. Also c/o PERES In ER patient afebrile, peak: 82, RR: 20, BP 202/116, 96% on room air. No leukocytosis or significant electrolyte abnormality. Troponin: 0.025, EKG sinus rhythm no acute ST changes CT head: Small subacute infarct right internal capsule. No evidence for acute intracranial hemorrhage. In ER pt with resolution of slurred speech and no other focal deficits noted. Pt refused aspirin initially and refused labetalol. - echo: ef >70%, grade 1 Diast dysfunction; no atrial septal defect Carotid US: negative troponin plateaud 0.14 o 0.16--> likely from Demand Ischemia - Neurology consulted ASA + Plavix started - BP systolic up to 200s asymptomatic hold dc Hydralazine IV given will start Hydralazine 25mg po BID tonight - neuro symptoms resolved - PT/OT /ST ordered monitor (2) HTN (hypertension): Patient with h/o HTN. Reported history numerous medication intolerances including labetalol causing nausea and joint pain, amlodipine causing gingival overgrowth, diuretics causing dehydration. Patient has been off of BP medications for 6 months In ER patient hypertensive with BP as high as 238/139. Patient refused labetalol in ER - management as noted above - goal BP 140-160 (3) Anxiety: (4) Depression: Patient has been off of Ativan for 2 months, was weaned by PCP. Follows with outpatient psychology. History of insomnia -Continue mirtazapine at bedtime (5) Degenerative joint disease of cervical spine: Currently being weaned off Tylenol with codeine and is down to 1.5 tab daily at bedtime -Continue Tylenol with codeine DVT Prophylaxis -Lovenox SQ-- hold for elevated BP Full Code as per discussion with pt Follows with Dr Solo for routine care Subjective ff up for acute CVA seen resting in bed, comfortable neuro symptoms resolved denies other symptoms no chest pain, dyspnea, dizziness Review of Systems Review of Systems: All systems reviewed & are unremarkable except as noted in HPI & below Physical Exam Physical Exam: General- oriented x 3, not in distress, speaks in sentences with no effort or accessory muscle use Eyes- anicteric Neck- no JVD Lungs- clear breath sounds bilaterally Heart- normal rate, regular rhythm; no murmurs Abdomen- normal bowel sounds, nondistended, soft, nontender Extremities- no pretibial edema, no calf tenderness Neuro- alert, oriented x 3; no gross focal neurologic deficits Skin- warm & dry Results & Data Vital Signs (Past 12 Hours) Vital Signs Temp Pulse Pulse Resp BP Pulse Ox 08/28/18 07:25 73 08/28/18 07:02 36.9 C 69 17 179/88 H 97 08/28/18 03:22 36.7 C 63 17 173/83 H 95 08/27/18 23:49 36.7 C 67 17 167/93 H 95 Laboratory Results Laboratory Results - last 24 hr 08/28/18 08/28/18 05:24 05:24 WBC 6.47 RBC 4.07 L Hgb 13.1 Hct 38.1 MCV 93.6 MCH 32.2 MCHC 34.4 RDW Std Deviation 39.7 RDW Coeff of Krista 11.7 Plt Count 277 MPV 9.2 Immature Gran % (Auto) 0.2 Neut % (Auto) 47.5 Lymph % (Auto) 37.1 [place] % (Auto) 10.7 Eos % (Auto) 4.2 Baso % (Auto) 0.3 Immature Gran # (Auto) 0.01 Neut # (Auto) 3.08 Lymph # (Auto) 2.40 [place] # (Auto) 0.69 H Eos # (Auto) 0.27 Baso # (Auto) 0.02 Sodium 141 Potassium 3.9 Chloride 109 H Carbon Dioxide 29 Anion Gap 3.0 BUN 21 H Creatinine 0.98 Est Cr Clr Drug Dosing 35.4 Est GFR ( Amer) 66.8 Est GFR (Non-Af Amer) 57.6 BUN/Creatinine Ratio 21.8 H Glucose 81 Calcium 8.6 (1) HTN (hypertension) Hypertension type: unspecified Qualified Code(s): I10 - Essential (primary) hypertension (2) CVA (cerebral vascular accident) CVA mechanism: unspecified Qualified Code(s): I63.9 - Cerebral infarction, unspecified
--- NOTE | 2018-08-28 11:56 | Progress Note ---
DATE: 08/28/2018 SUBJECTIVE: I am seeing Mrs. Scanlon in followup of a right internal capsule lacune in the setting of uncontrolled hypertension. She has no complaints. She feels that her left facial droop is improved. She has not had any new neurologic symptoms. Her echo summary, severe concentric left ventricular hypertrophy, hyperdynamic left ventricular systolic function, EF greater than 70. No segmental left ventricular wall motion abnormalities noted. Moderate mitral regurg. Interatrial septum is intact. No evidence of an atrial septal defect, no shunt. Left atrium is normal. The patient is currently on aspirin, Plavix, Remeron. She is receiving hydralazine, melatonin, Tylenol 3 if needed. OBJECTIVE: NEUROLOGIC: She is awake and alert. Speech and language are normal. Normal visual mckeon, marginal flattening of the left nasolabial fold. No dysarthria. There are mildly decreased left rapid alternating movements and without drift and mild left iliopsoas weakness. Normal light touch. VITAL SIGNS: Blood pressure 179/88, 73, 17, 36.9, 97. IMPRESSION: Right internal capsule lacune with uncontrolled hypertension. PLAN: Gradual control of blood pressure. The importance of this was stressed to the patient. I discussed the echo findings of support uncontrolled hypertension. She wondered if exercise and diet might be adequate. I indicated to her that at this point, her blood pressure is so severe and there is end organ damage. She needs to be on antihypertensives. Those things may be helpful, but I doubt they would control her hypertension without meds.. We discussed dual antiplatelet therapy for 3 weeks and then aspirin alone. She will have a Zio as an outpatient, we can arrange that, although this is likely not embolic, likely a small vessel. I answered the patient's questions. She should see myself or Melissa Hawkins in followup within the next 2-3 weeks. STACY
[2018-08-28] MEDS ORDERED: STROKE PATIENT DISCHARGE STA ×2 (15:33→17:10)
[2018-08-28] MEDS ORDERED: TRAMADOL HCL 50 MG TABLET PO PRN (16:58)
[2018-08-28] MEDS: MIRTAZAPINE 15 MG PO SCH (20:45)
[2018-08-28] MEDS: ACETAMINOPHEN W/CODEINE #3 1 TAB PO PRN (21:29)
[2018-08-29] MEDS ORDERED: COUGH DROP (SUGAR FREE) LOZ 24 LOZ/1 BOX BUCCAL ONE (04:57)
[2018-08-29] MEDS: HydrALAZINE HCL 20 MG/ML VIAL IV PRN (06:06)
[2018-08-29] MEDS: ASPIRIN 81 MG ECTAB PO SCH (06:10)
[2018-08-29] MEDS: CLOPIDOGREL BISULFATE 75 MG TAB PO SCH (08:45)
[2018-08-29] MEDS ORDERED: ATORVASTATIN 20 MG TAB PO SCH (14:15)
[2018-08-29] MEDS ORDERED: STROKE PATIENT DISCHARGE PRN (14:29)
--- NOTE | 2018-08-29 14:48 | Pharmacy Report ---
Pharmacist Stroke Counseling - Date of Service August 29, 2018 - Scope: Pharmacy has been consulted to provide medication discharge counseling for this patient admitted with ischemic stroke as per the Pharmacist Discharge Counseling for Stroke Patients Protocol. - Medications on Discharge: Home Medications Medication Instructions Recorded Confirmed acetaminophen-codeine 1.5 tab PO HS PRN 12/23/17 08/26/18 melatonin 1.5 mg PO HS PRN 08/26/18 08/26/18 mirtazapine 15 mg PO HS 08/26/18 08/26/18 New Rx's Medication Instructions Recorded aspirin [Ecotrin Low Strength] 81 mg PO DAILY@0700 30 Days #30 tab 08/28/18 clopidogrel 75 mg PO QAM 21 Days #21 tab 08/28/18 atorvastatin 20 mg PO QAM 30 Days #30 tab 08/29/18 hydralazine 25 mg PO BID 30 Days #60 tab 08/29/18 - Action: The above medications, specifically ones for stroke treatment/prophylaxis, have been reviewed in detail with the patient and her prior to discharge. This includes indication, common adverse reactions, drug interactions, and medication administration. Medication counseling has been employed using the teach-back method to ensure understanding. - Outcome: The patient and have demonstrated understanding of the medications. Please note, they are aware that the pharmacist will call them within 72 hours post-discharge to confirm that the appropriate medications are being taken and answer any further medication related questions the patient might have at that time. Contact information Individual to be contacted: Patient Phone number: [phone] Best time to call: anytime. but please call back if you do not get a hold of her, they do not have an answering machine. Additional comments: Patient and were very thankful for our counselling session. They are aware to stop Plavix after 3 weeks therapy. Patient was not originally discharged on statin - discussed case with Dr Duggan - patient started on Atorvastatin 20mg daily and will be increased to 40mg daily by PCP if tolerating. Patient has had many ADR to medications in the past, so we want to go slow to ensure she doesn't have side effects, before increasing to high dose statin therapy. Thank you for allowing pharmacy to be involved in the care of this patient. Please call [phone] or [phone] with any additional questions
--- NOTE | 2018-08-29 18:35 | Discharge Summary ---
Date of Service August 29, 2018 Admission HPI Per Admitting Provider Pt is 72 y/o F with PMH HTN, anxiety, depression, degenerative disc disease presented to ER with complaint of slurred speech. Patient states this morning approximately 11 AM left side of her face and felt like it was "pulling" or drooping and felt like had some drooling. At approximately 11:45 AM patient's returned home and noted that patient with some slurred speech. Denies any noted extremity weakness or paresthesias. Patient states then started with headache. Reports noticing some improvement of left facial droop and slurred speech since arrival to ER. Currently patient complaining of headache and some nausea. She reports that she is on a very regimented meal schedule and she missed her dinnertime. Denies fever/chills, diaphoresis, V/D/C, dizziness, syncope, vision changes, neck pain, CP, SOB, orthopnea, palpitations, cough, sore throat, choking, otalgia, rhinorrhea, abdominal pain, paresthesias, extremity weakness, extremity edema, rashes, urinary symptoms. Patient reports was on 2 mg of Ativan which she has been weaned off and last use approximately 2 months ago. Also reports was on Tylenol with codeine and has been weaning off of that and is now down to 1-1/2 tablets at bedtime which was changed this week from 2 tablets daily. Patient states upon this medication change she had insomnia the following day and yesterday she was prescribed trazodone however she has not started taking that yet as her sleep had improved. Patient reports chronic history of insomnia and is following with out patient psychology and has had improvement of insomnia problems. Pt reports past couple months following with Dr Solo and have been able to make these progressive med discontinuations. Reports has been off BP meds for 8 months secondary to many med side effects and states that her BP had improved. Patient with lengthily outpatient list of medication intolerances. Reports unable to tolerate full aspirin has causes GI upset and headache, however able to tolerate baby aspirin. Reports labetalol causes nausea and joint pain. States amlodipine caused gingival over growth, and diuretics cause dehydration. In ER patient afebrile, pulse 82, BP 202/116 up to 225/110, oxygen sats 98% on room air. CT head: Small subacute infarct right internal capsule, no intracranial hemorrhage. In ER reported that no noted facial drooping and improvement of slurred speech. In ER patient was prescribed aspirin and labetalol however patient refused. Admission Exam Per Admitting Provider General: no acute distress, WDWN Head: normocephalic, atraumatic Eyes: PERRL, EOM's intact, conjunctiva non-injected, anicteric ENT: normal inspection external ears, nose, mucous membranes moist Neck: supple, trachea midline, non-tender Lungs: clear, no respiratory distress, no wheezing/rhonchi/rales CV: RRR, no murmur, no JVD, no pretibial edema Abd: normal BS, soft, non-tender Ext: no cyanosis, no calf tenderness Neuro: A&O x 3, no slurred speech, no facial droop, symmetric eyebrow raise, able to smile and frown with no abnormality, normal finger to nose, no pronator drift, strength 5/5 bilateral upper and lower extremities, sensation to light touch intact, slightly anxious Skin: warm, dry Principal Diagnosis ACUTE CVA, RIGHT INTERNAL CAPSULE Discharge Exam General- oriented x 3, not in distress, speaks in sentences with no effort or accessory muscle use Eyes- anicteric Neck- no JVD Lungs- clear breath sounds bilaterally no wheezing , no crackles Heart- normal rate, regular rhythm; no murmurs Abdomen- normal bowel sounds, nondistended, soft, nontender Extremities- no pretibial edema, no calf tenderness Neuro- alert, oriented x 3; no gross focal neurologic deficits Skin- warm & dry Discharge Data Allergies Allergy/AdvReac Type Severity Reaction Status Date / Time brompheniramine Allergy Unknown UNKNOWN Verified 08/26/18 14:51 buspirone Allergy Unknown UNKNOWN Verified 08/26/18 14:51 chlorzoxazone Allergy Unknown U NKNOWN Verified 08/26/18 14:51 diphenhydramine Allergy Unknown UNKNOWN Verified 08/26/18 14:51 famotidine Allergy Unknown UNKNOWN Verified 08/26/18 14:51 gluten Allergy Unknown unknown Unverified 08/26/18 14:51 ibuprofen Allergy Unknown hives Unverified 08/26/18 14:51 meperidine Allergy Unknown . Verified 08/26/18 14:51 Penicillins Allergy Unknown hives Verified 08/26/18 18:05 phenylpropanolamine Allergy Unknown UNKNOWN Verified 08/26/18 14:51 Sulfa (Sulfonamide Allergy Unknown Unknown Verified 08/26/18 14:51 Antibiotics) thiopental Allergy Unknown . Verified 08/26/18 14:51 metoprolol AdvReac Intermediate SUDDEN Verified 08/26/18 14:51 SEVERE MOOD CHANGES prednisone AdvReac Mild o Verified 08/26/18 14:51 oxycodone AdvReac Unknown 0 Verified 08/26/18 14:51 IMPERIUM 3 Allergy Unknown UNKNOWN Uncoded 08/26/18 14:51 Consultations 08/26/18 15:40 ED Decision to Admit Stat 08/26/18 19:44 Consult Case Management - Discharge Planning Routine Consult Case Management - Discharge Planning Routine Consult Neurology Routine Ordered Studies 08/26/18 13:54 CT head/brain wo con Stat Findings: The paranasal sinuses and mastoid air cells are clear. Small subacute infarct anterior aspect right internal capsule. No evidence for acute intracranial hemorrhage. Ventricular system is midline. Impression: 1. Small subacute infarct right internal capsule. 2. No evidence for acute intracranial hemorrhage. 08/26/18 19:44 US carotid doppler BI Routine IMPRESSION: No hemodynamically significant stenosis seen within the carotid arteries. Hospital Course (1) CVA (cerebral vascular accident): Pt presented to ER with c/o L facial droop and slurred speech started around 11AM today. Also c/o PERES In ER patient afebrile, peak: 82, RR: 20, BP 202/116, 96% on room air. No leukocytosis or significant electrolyte abnormality. Troponin: 0.025, EKG sinus rhythm no acute ST changes CT head: Small subacute infarct right internal capsule. No evidence for acute intracranial hemorrhage. In ER pt with resolution of slurred speech and no other focal deficits noted. Pt refused aspirin initially and refused labetalol. - echo: ef >70%, severe concentric left ventricular hypertrophy, grade 1 Diast dysfunction; no atrial septal defect; moderate mitral regurg Carotid US: negative troponin plateaud 0.14 o 0.16--> likely from Demand Ischemia - Neurology consulted, Dr. Duvall ASA + Plavix started Recommend Plavix x 21 days aspirin indefinitely Lipitor 20 mg p.o. daily started, uptitrate as an outpatient depending on patient's tolerance - neuro symptoms resolved -Continue strict risk factor control especially hypertension (2) HTN (hypertension): Patient with h/o HTN. Reported history numerous medication intolerances including labetalol causing nausea and joint pain, amlodipine causing gingival overgrowth, diuretics causing dehydration. Patient has been off of BP medications for 6 months In ER patient hypertensive with BP as high as 238/139. Patient refused labetalol in ER Patient has history of side effects with blood pressure medications Blood pressure during admission was elevated up to systolic 200s Hydralazine 25 mg titrated to twice daily Discharge blood pressure systolic 140s Continue hydralazine 25 mg p.o. twice daily, monitor as an outpatient and titrate accordingly (3) Anxiety: (4) Depression: Patient has been off of Ativan for 2 months, was weaned by PCP. Follows with outpatient psychology. History of insomnia -Continue mirtazapine at bedtime (5) Degenerative joint disease of cervical spine: Currently being weaned off Tylenol with codeine and is down to 1.5 tab daily at bedtime -Continue Tylenol with codeine Disposition DC home Follow-up with primary care physician in 3 to 5 days Follow up with neurologist in 3 to 4 weeks Patient declined home health nursing despite encouragement Total Time Total Time Spent Total Time Spent (In Minutes): 45 mins Discharge Plan Discharge Items Patient Disposition: Home - Self-Care Reason For Visit: STROKE Discharge Diagnosis: ACUTE STROKE Discharge Goals: Diagnostic testing Activity: As commented below Activity Comment: NO HEAVY EXERTION UNTIL RE-EVALUATED BY PRIMARY CARE PHYSICIAN Lifting: Wait until after follow-up appointment Exercise/Sports: Wait until after follow-up appointment Driving/Machine Use Comment: NO DRIVING UNTIL CLEARED BY PRIMARY CARE PHYSICIAN Non-emergency contact: Primary Care Provider Call non-emergency contact if: you have any medication questions and you have a fever Follow-up/Referrals: Melissa Medrano MD [Physician] - Henry Solo MD [Primary Care Provider] - Diet: Heart Healthy Addtl Provider Instructions: FOLLOW UP WITH PRIMARY CARE PHYSICIAN IN 3-5 DAYS. THE CLINIC WILL BE CALLING YOU SOON FOR THE APPOINTMENT. FOLLOW UP WITH NEUROLOGIST DR. MEDRANO IN 2-3 WEEKS. PLEASE CALL HER CLINIC FOR THE APPOINTMENT. CONTACT INFO OUTLINED ABOVE. TAKE YOUR BLOOD PRESSURE DAILY, AT LEAST 2 HOURS AFTER TAKING HYDRALAZINE. INFORM PRIMARY CARE PHYSICIAN IF THE SYSTOLIC TOP NUMBER IS PERSISTENTLY ABOVE 160. FOLLOW INSTRUCTIONS REGARDING BLOOD PRESSURE MEDICATION BY PRIMARY CARE PHYSICIAN ON FOLLOW UP. Risk Factors for Stroke: You can reduce your chances of stroke by working with your medical provider to adopt a healthy lifestyle. Some specific ways to lower your chance of stroke are: * If you are a smoker, now is the time to stop smoking cigarettes * If you are diabetic, improve the control of your blood sugars * Avoid excessive amounts of alcohol * Control high blood pressure * Lose weight if you are overweight * Be sure to lead an active lifestyle * Eat a healthy diet low in salt, cholesterol and fat You should know about other risk factors for stroke that you are unable to control. These include: * Age 55 years or older * Male gender * Certain racial groups: , or / * Family History of Stroke, Mini stroke or Heart Attack * Sickle Cell Disease Follow Up: It is important for you to keep your follow up appointments with your medical provider. Who to Call and When: Medical Emergencies: Call 911 immediately if you experience any of the following warning signs and symptoms of Stroke: * Sudden numbness or weakness of the face, arm or leg, especially on one side of the body * Sudden confusion, trouble speaking or understanding * Sudden trouble seeing in one or both eyes * Sudden trouble walking, dizziness, loss of balance or coordination * Sudden severe headache with no cause Do not delay calling 911 if you experience any warning signs or symptoms of a stroke. Delay in seeking medical attention may affect what treatments can be given to you. . Prescriptions: New clopidogrel 75 mg Tablet 75 mg PO QAM 21 Days Qty: 21 RF: 0 aspirin [Ecotrin Low Strength] 81 mg Tablet,Delayed Release (Dr/Ec) 81 mg PO DAILY@0700 30 Days Qty: 30 RF: 2 hydralazine 25 mg Tablet 25 mg PO BID 30 Days Qty: 60 RF: 0 atorvastatin 20 mg Tablet 20 mg PO QAM 30 Days Qty: 30 RF: 2 Continued acetaminophen-codeine 300-30 mg Tablet 1.5 tab PO HS PRN (Reason: Pain) RF: 0 mirtazapine 15 mg tablet 15 mg PO HS RF: 0 melatonin 3 mg Tablet 1.5 mg PO HS PRN (Reason: Sleep) RF: 0 Stand-Alone Forms: Medications to Prevent Stroke, My [facility]/Other Patient Handouts: Atorvastatin Calcium Oral tablet, Tips Using Less Salt, Cooking Tips Low Fat, Choices Low Salt, Stroke Self Care, Stroke Risk Factors, Foods Heart Healthy Discharge Orders: Discharge Order (Routine); Ordered 08/29/18 Ordered By: Ayan Duggan Admission Data Admit Date/Time: 08/26/18 17:57 Attending Provider: Ayan Duggan Admit Provider: Tiffany Shaver Primary Care Provider: Henry Solo Other Providers: Tiffany Shaver ; Melissa Medrano Service: Telemetry Other Interventions: Discharge Summary Assessment (RN) Last Done: 08/29/18 13:33 DC Date/Time DO NOT enter until pt leaves facility: 08/29/18 15:20
--- NOTE | 2018-08-29 19:56 | Hospitalist Progress Note ---
Date of Service August 29, 2018 Assessment & Plan (1) CVA (cerebral vascular accident): Pt presented to ER with c/o L facial droop and slurred speech started around 11AM today. Also c/o PERES In ER patient afebrile, peak: 82, RR: 20, BP 202/116, 96% on room air. No leukocytosis or significant electrolyte abnormality. Troponin: 0.025, EKG sinus rhythm no acute ST changes CT head: Small subacute infarct right internal capsule. No evidence for acute intracranial hemorrhage. In ER pt with resolution of slurred speech and no other focal deficits noted. Pt refused aspirin initially and refused labetalol. - echo: ef >70%, severe concentric left ventricular hypertrophy, grade 1 Diast dysfunction; no atrial septal defect; moderate mitral regurg Carotid US: negative troponin plateaud 0.14 o 0.16--> likely from Demand Ischemia - Neurology consulted, Dr. Duvall ASA + Plavix started Recommend Plavix x 21 days aspirin indefinitely Lipitor 20 mg p.o. daily started, uptitrate as an outpatient depending on patient's tolerance - neuro symptoms resolved -Continue strict risk factor control especially hypertension (2) HTN (hypertension): Patient with h/o HTN. Reported history numerous medication intolerances including labetalol causing nausea and joint pain, amlodipine causing gingival overgrowth, diuretics causing dehydration. Patient has been off of BP medications for 6 months In ER patient hypertensive with BP as high as 238/139. Patient refused labetalol in ER Patient has history of side effects with blood pressure medications Blood pressure during admission was elevated up to systolic 200s Hydralazine 25 mg titrated to twice daily Discharge blood pressure systolic 140s Continue hydralazine 25 mg p.o. twice daily, monitor as an outpatient and titrate accordingly (3) Anxiety: (4) Depression: Patient has been off of Ativan for 2 months, was weaned by PCP. Follows with outpatient psychology. History of insomnia -Continue mirtazapine at bedtime (5) Degenerative joint disease of cervical spine: Currently being weaned off Tylenol with codeine and is down to 1.5 tab daily at bedtime -Continue Tylenol with codeine Disposition DC home Follow-up with primary care physician in 3 to 5 days Follow up with neurologist in 3 to 4 weeks Patient declined home health nursing despite encouragement Subjective ff up for acute cva seen resting in bed, comfortable in good spirits states she feels fine overall neuro symptoms resolved denies chest pain, dyspnea, palpitations no other symptoms states she is ready and would like to be discharged today Review of Systems Review of Systems: All systems reviewed & are unremarkable except as noted in HPI & below Physical Exam Physical Exam: General- oriented x 3, not in distress, speaks in sentences with no effort or accessory muscle use Eyes- anicteric Neck- no JVD Lungs- clear breath sounds bilaterally, no rales/wheezes Heart- normal rate, regular rhythm; no murmurs Abdomen- normal bowel sounds, nondistended, soft, nontender Extremities- no pretibial edema, no calf tenderness Neuro- alert, oriented x 3; no gross focal neurologic deficits Skin- warm & dry Results & Data Vital Signs (Past 12 Hours) Vital Signs Temp Pulse Pulse Resp BP Pulse Ox 08/29/18 13:33 36.7 C 93 H 19 138/81 91 08/29/18 13:29 138/81 08/29/18 12:25 164/85 H 08/29/18 10:31 36.7 C 93 H 19 144/91 H 91 08/29/18 08:00 72 (1) CVA (cerebral vascular accident) CVA mechanism: unspecified Qualified Code(s): I63.9 - Cerebral infarction, unspecified (2) HTN (hypertension) Hypertension type: unspecified Qualified Code(s): I10 - Essential (primary) hypertension
--- NOTE | 2018-08-30 08:04 | Consultation Report ---
DATE OF CONSULTATION: 08/27/2018 REASON FOR CONSULTATION: Possible stroke. HISTORY OF PRESENT ILLNESS: The patient is a 72-year-old right-handed female with currently untreated hypertension, presented to the ER, yesterday morning, she developed a left facial droop and mild slurred speech of sudden onset. She speaks of some dizziness or imbalance, but does not commit to vertigo and it almost sounds as if she may occasionally have dizziness and imbalance. She clearly has a history of vertigo with rolling in bed. She denied any change in her vision, double vision, field cut. There was no difficulty with swallowing. There was dysarthria and a facial droop. There was no weakness or numbness in the extremities. No real change in her gait. She denied a headache to me. She had not recently been ill, not had any head or neck injury, chiropractic manipulation of the neck, chest pain, palpitation, shortness of breath. She has had some weight gain since being on Remeron and she feels her sense of taste has changed. She had not been on an antihypertensive for 8 months. She previously has not tolerated 325 of aspirin causing some nausea and headache, but has taken 81 mg in the past, but not currently and has tolerated that. She is of unknown lipid status. No history of rheumatic fever, murmur, cancer, DVT, PE. No history of dysrhythmia that is known to the patient. PAST MEDICAL HISTORY: Hypertension, presumed anxiety. The patient has recently tapered herself off Ativan over a long period of time and is in the process of tapering herself off Tylenol 3. SOCIAL HISTORY: Nonsmoker, nondrinker. FAMILY HISTORY: No family history of stroke, although father had cardiomyopathy. ALLERGIES: BROMPHENIRAMINE, BUSPIRONE, CHLORZOXAZONE, DIPHENHYDRAMINE, FAMOTIDINE, GLUTEN, IBUPROFEN, MEPERIDINE, PENICILLIN, PHENYLPROPANOLAMINE, SULFA, THIOPENTAL, METOPROLOL, PREDNISONE, OXYCODONE, . MEDICATIONS ON ADMISSION: Tylenol with Codeine 1.5 tab at bedtime p.r.n., melatonin 1.5 mg at bedtime p.r.n., mirtazapine 15 mg at bedtime. LABORATORY DATA: White count, H and H, platelet count are unremarkable. PT, PTT are normal. Chemistry profile notable for a potassium 3.4, BUN and creatinine 23/0.88. Her troponin is positive. Total cholesterol 208, HDL 80, LDL 113. TSH 1.88. CT of the head noncontrast shows a subacute infarction in the right internal capsule. Carotid ultrasound, no hemodynamically significant stenosis, mild calcific plaque bilaterally. The patient's echocardiogram, normal sinus rhythm, prolonged QT. PHYSICAL EXAMINATION: VITAL SIGNS: On admission, her blood pressure was 202/116. Current vitals: 36.7, 64, 17, 152/86, pulse ox 93. GENERAL: The patient is awake and alert, oriented x3, no right/left confusion, denial. No aphasia. NECK: There are no carotid bruits. HEART: No heart murmurs. Heart is regular rate and rhythm. There is a mild murmur in the aortic region. NEUROLOGIC: Pupils are equal. Optic nerves are grossly normal. Normal mckeon and motility. There is a flattening of the left nasolabial fold. No facial anesthesia. Gag is intact bilaterally. Speech nondysarthric. Motor upper 5/5. There is decreased left rapid alternating movement. There is minimal weakness of the left iliopsoas. No sensory abnormalities to light touch, temperature and vibration sense. [id number] and [id number] are normal. Her gait is unremarkable. IMPRESSION: Right internal capsule lacune related to patient's vascular risk factors which include hypertension out of control, hyperlipidemia. PLAN: Perform echo, telemetric monitoring. Defer to hospitalist team regarding elevated troponin. Would add Plavix to the aspirin, which I have done and using combination for 21 days and then antiplatelet therapy with aspirin thereafter. I had a very serious talk to the patient about getting blood pressure under control. Some of her listed allergies are side effects, for instance, she indicated with I believe labetalol that she had gum overgrowth. I spoke with her about tolerating some nonallergic reactions for the sake of reducing her risk of another stroke. I would like her to have an MRI. She is very hesitant because she had one previously at [facility]. I felt she could not breathe in the tube because the oxygen flow in the MRI machine was not functional. She does not want to be sedated with Ativan which she has successfully been able to taper and discontinue. I would, if she is willing to treat her with some Valium prior to the MRI. Gradual reduction of blood pressure remains appropriate. Treatment with a statin is appropriate as well. We will follow with you.
--- NOTE | 2018-08-31 14:48 | Pharmacy Report ---
Pharmacist Post D/C Phone Note - Phone Note: Date of phone call: August 31, 2018. Individual with whom pharmacist spoke to: CATHY LORENZO The patient and/or patient home office representative(s) were unable to be reached for a follow-up phone call within the 72 hour time frame. Discharge counseling pharmacist contact information has already been provided to the patient should questions arise. Thank you for allowing us to be involved in the care of this patient. - Home Medications: Home Medications Medication Instructions Recorded Confirmed acetaminophen-codeine 1.5 tab PO HS PRN 12/23/17 08/26/18 melatonin 1.5 mg PO HS PRN 08/26/18 08/26/18 mirtazapine 15 mg PO HS 08/26/18 08/26/18 New Rx's Medication Instructions Recorded aspirin [Ecotrin Low Strength] 81 mg PO DAILY@0700 30 Days #30 tab 08/28/18 clopidogrel 75 mg PO QAM 21 Days #21 tab 08/28/18 atorvastatin 20 mg PO QAM 30 Days #30 tab 08/29/18 hydralazine 25 mg PO BID 30 Days #60 tab 08/29/18
--- NOTE | 2018-09-01 12:25 | Pharmacy Report ---
Pharmacist Post D/C Phone Note - Phone Note: Date of phone call: September 01, 2018. Individual with whom pharmacist spoke to: CATHY Evelio LORENZO The following questions were reviewed during the phone call with responses listed below each: Can you tell me the medications that you are currently taking as well as when and how you take each medication? -See Table Below When have you missed any doses of your medications? - Missed none What side effects are you having from your medications, specifically, the new medications you were started on? - Nauseous in the morning from taking the meds 2 hrs after breakfast. Counseled to take them with breakfast and it is okay to take them all together. She is taking ASA, Plavix, Lipitor and Hydralazine in the AM. What questions do you have about your medications? - She asked me if she can take Hydralazine 50 mg as per her PCP if her BP was high- she is prescribed 25mg BID. She only checks her BP once daily in the AM. I said he can take the 50 mg dose if her BP was high in the AM but check BP in the PM and only take 50 mg if BP is high. What problems are you having obtaining your medications? - Side effect of some GI upset, nausea. Advised to meds with food. Also mentioned knee pain but this was ongoing even before her admission here. Advised to monitor this and watch for muscle aches/pain. When is your next appointment with your primary care doctor? - She saw her PCP today AM. She has an appt. with Cardiology next month. Additional comments: - Patient knew what her meds were for and asked questions about timing and side effects. She also asked me about her sleep meds - she is on Melatonin, Tylenol #3 and Mirtazapine at HS prn. PCP prescribed her Trazodone for sleep prn also. She asked if she should start this because her sleep was okay now with the other meds. Advised her to take Trazodone only if needed for sleep and try 25 mg for few days before increasing to 50 mg. I told her that if she continues on Trazodone and Mirtazapine then she can stop taking the Melatonin. Asked her to call us back with anymore questions As per the Pharmacist Discharge Counseling for Stroke Patients Protocol, this phone call has been completed within 72 hours of discharge. Thank you for allowing us to be involved in the care of this patient. - Home Medications: Home Medications Medication Instructions Recorded Confirmed acetaminophen-codeine 1.5 tab PO HS PRN 12/23/17 08/26/18 melatonin 1.5 mg PO HS PRN 08/26/18 08/26/18 mirtazapine 15 mg PO HS 08/26/18 08/26/18 New Rx's Medication Instructions Recorded aspirin [Ecotrin Low Strength] 81 mg PO DAILY@0700 30 Days #30 tab 08/28/18 clopidogrel 75 mg PO QAM 21 Days #21 tab 08/28/18 atorvastatin 20 mg PO QAM 30 Days #30 tab 08/29/18 hydralazine 25 mg PO BID 30 Days #60 tab 08/29/18
== END 2018-08-29 15:20 | disposition home or self-care (01) | DRG 65 ==
LOC: ED 13:09 → 2E 17:57